=== PATIENT | female | born 1970 | race Caucasian/White ===

== ENCOUNTER 2017-12-27 14:45 | Inpatient (IN) ==
--- NOTE | 2017-12-27 19:03 | Internal Med History&Physical ---
Date of Encounter: 12/27/17 Time of Encounter: 16:15 Internal Medicine - H&P: HPI Admitted From: Intrahospital Transfer Plans for Post Hospital Care: Home History of present illness: Ms. Marrufo is a 47 year old female current smoker, HTN, seizures. Pt states she has been having chest pain off and on for about weeks. Reports chest pain has gotten progressively worse. Pain is sharp and radiates to L arm and patricia. Denies association with SOB or diaphoresis. Report N/V. Denies fever or chills. Pt states CP currently 6/10. She states she did not get nitro at [facility]. Recently saw her PCPC for the chest pain and PCP noted that her BP was elevated and prescribed her BP medication. Denies prior hx of CAD or CA. Father had quadruple bypass. Mother had heart disease but is , and sister also has hx of heart disease. Pt is a transfer from [place]. ED at [facility] reports troponin 0.20. EKG SR. neg chest x ray. Past Med Surg Social Fam HX - Past Medical History Medical history: COPD, hepatitis, hypertension, seizures, other Additional medical history: PULMONARY NODULES Psychiatric history: anxiety, depression, panic disorder, PTSD, prior suicide attempt, previous psychiatric hospitalization - Past Surgical History Surgical History: hysterectomy Additional surgical history: PULMONARY "WASH" - Social History Smoking Status: Current every day smoker Smokeless Tobacco Status: No Alcohol use: occasionally Drug use: none - Family History Father Living Status: Hx Family Cardiac Disorders: Yes (quadruple bypass) Hx Family Respiratory Disorders: No Hx Family Cancer: No Hx Family GI Disorders: No Hx Family Endocrine Disorder: No Hx Family Neuromuscular Disorders: No Hx Family Neurologic Disorders: Yes (CVA) Hx Family HEENT Disorders: No Hx Family Autoimmune Disorders: No Mother Living Status: Hx Family Cardiac Disorders: No Hx Family Respiratory Disorders: No Hx Family Cancer: No Hx Family GI Disorders: No Hx Family Endocrine Disorder: No Hx Family Neuromuscular Disorders: No Hx Family Neurologic Disorders: Yes (CVA) Hx Family HEENT Disorders: No Hx Family Autoimmune Disorders: No - Additional Family History Additional family history: Mother heart disease. sister heart disease. Internal Medicine - H&P: Meds Breo Ellipta 100-25 Mcg INH 1 puff IH DAILY 11/12/16 [History] Duoneb 1 aerosol IH Q4H PRN 11/12/16 [History] Oxygen 2 l IH HS 11/12/16 [History] Proair Hfa 2 puff IH Q4H PRN 11/12/16 [History] Spiriva 1 puff IH DAILY 11/12/16 [History] Valium 5 mg PO TID 11/12/16 [History] levETIRAcetam [Keppra] 500 mg PO TID #30 tablet 03/18/17 [Rx] Lisinopril [Zestril] 10 mg PO DAILY 12/27/17 [History] Tizanidine HCl [Zanaflex] 2 mg PO TID 12/27/17 [History] 3 Allergy/AdvReac Type Severity Reaction Status Date / Time Cyclobenzaprine Allergy Swelling Verified 12/27/17 12:00 [From Flexeril] of Lip/Tongue/Throat All Systems PM: A 10-system review of systems was performed and is negative for pertinent findings except as documented above in the HPI. - Constitutional Vitals: Temp Pulse Resp BP Pulse Ox 97.7 F 64 16 138/91 97 12/27/17 16:30 12/27/17 16:30 12/27/17 16:30 12/27/17 16:30 12/27/17 16:30 General appearance: Present: A&O X 3, no acute distress - Head Head exam: Present: atraumatic, normocephalic - Eye Eye exam: Present: PERRL, conjuntiva pink, sclera anicteric Pupils: Present: PERRL - Neck Neck exam general surgery: Present: supple, trachea midline. Absent: lymphadenopathy - Respiratory Respiratory exam: Present: CTAB. Absent: accessory muscle use, rales, rhonchi, wheezes - Cardiovascular Cardiovascular exam: Present: RRR, +S1, +S2. Absent: diastolic murmur, gallop, rubs, systolic murmur - GI/Abdominal GI/Abdominal exam: Present: normal bowel sounds, soft, no peritoneal signs. Absent: distended, tenderness - Extremities Exam Extremities exam: Present: warm, radial pulses palpable and symmetrical. Absent : calf tenderness, cyanotic, pedal edema - Neurological Exam Neurological exam: Present: CN II-XII intact, oriented X3, no focal deficits. Absent: pronater drift, facial droop, speech deficit - Skin Skin exam: Present: dry, intact - Assessment and plan (1) Chest pain Current Visit: Yes Status: Acute Assessment and plan: Will check Troponin now as pt states chest pain is up to 6/10 again. Will check EKG 12 lead. Will cycle troponin. ASA daily, nitro SL prn. Oxygen prn. Will monitor on telemetry. FLP in am. If troponin bumps will start on heparin gtt. Will give heparin 5000 units bolus x one now Qualifiers: Qualified Code(s): R07.9 - Chest pain, unspecified (2) HTN (hypertension) Current Visit: Yes Status: Acute Assessment and plan: Lisinopril Qualifiers: Qualified Code(s): I10 - Essential (primary) hypertension (3) Seizure Current Visit: Yes Status: Acute Assessment and plan: will resume levetiracetam and place on seizure precaution. (4) Current smoker Current Visit: Yes Status: Acute Assessment and plan: Cessation strongly advised. Nicotine patch prn. - Time Spent With Patient Total time spent is greater than 50% in coordination of care (as documented) at patient's floor/unit and/or counseling patient: 25 - 35 minutes
[2017-12-27] MEDS: Nitroglycerin 0.4 MG TAB.SUBL SL PRN ×3 (19:15→19:35)
[2017-12-27 19:51] LABS: Troponin I 0.22 ng/mL (< 0.04)
[2017-12-27] MEDS ORDERED: Ipratropium/Albuterol Neb 3 ML IH PRN (19:52)
[2017-12-27] MEDS ORDERED: tiZANidine 4 MG TABLET PO PRN (19:53)
[2017-12-27] MEDS: levETIRAcetam 500 MG/5 ML UDC PO SCH (20:18)
[2017-12-27 20:27] LABS: Hematocrit 37.6 % (35.3-44.9); Hemoglobin 13.3 g/dL (11.5-15.4); Mean Corpuscular HGB Conc 35.4 g/dL (31.6-35.5); Mean Corpuscular Hemoglobin 31.7 pg (28.0-33.3); Mean Corpuscular Volume 89.5 fL (83.0-100.0); Mean Platelet Volume 9.9 fL (9.4-12.4); Platelet Count 241 K/mcL (140-400); Red Cell Distribution Width 11.9 % (11.5-14.5)
[2017-12-27] MEDS: Budesonide/Formoterol 80/4.5 MDI IH SCH (21:26)
[2017-12-27] MEDS ORDERED: Melatonin 3 MG TABLET PO PRN (21:45)
[2017-12-27 22:08] LABS: Amphetamine Screen,Urine Negative ng/mL (Cutoff=1000); Barbiturate Screen,Urine Negative ng/mL (Cutoff=200); Benzodiazepines Screen,Urine Positive ng/mL (Cutoff=200); Cannabinoid Screen,Urine Negative ng/mL (Cutoff = 50); Cocaine Screen,Urine Negative ng/mL (Cutoff= 300); Opiate Screen,Urine Negative ng/mL (Cutoff=300); Phencyclidine Screen,Urine Negative ng/mL (Cutoff=25)
[2017-12-28 01:19] LABS: Basophils % 0.6 %; Eosinophils # 0.1 K/mcL (0.0-0.6); Eosinophils % 1.6 %; Hematocrit 36.1 % (35.3-44.9); Hemoglobin 12.6 g/dL (11.5-15.4); Immature Granulocytes % 0.2 % (0-4); Lymphocytes # 2.2 K/mcL (0.6-4.6); Lymphocytes % 45.6 %; Mean Corpuscular HGB Conc 34.9 g/dL (31.6-35.5); Mean Corpuscular Hemoglobin 31.2 pg (28.0-33.3); Mean Corpuscular Volume 89.4 fL (83.0-100.0); Mean Platelet Volume 9.7 fL (9.4-12.4); Monocytes # 0.4 K/mcL (0.0-1.3); Monocytes % 8.5 %; Neutrophils # 2.1 K/mcL (1.6-8.9); Platelet Count 214 K/mcL (140-400); Red Blood Count 4.04 M/mcL (3.82-4.97); Red Cell Distribution Width 11.9 % (11.5-14.5); Segmented Neutrophils % 43.5 %
[2017-12-28 01:22] LABS: Prothrombin Time 10.6 Seconds (9.4-12.1)
[2017-12-28 01:37] LABS: Alanine Aminotransferase 42 Units/L (7-52); Albumin 3.8 g/dL (3.5-5.7); Albumin/Globulin Ratio 1.7 (1.1-2.2); Alkaline Phosphatase 107 Units/L (34-104); Aspartate Amino Transferase 38 Units/L (13-39); BUN/Creatinine Ratio 19 (6-26); Bilirubin,Total 0.8 mg/dL (0.3-1.0); Blood Urea Nitrogen 14 mg/dL (6-20); Carbon Dioxide 25 mEq/L (23-29); Chloride 109 mEq/L (98-107); Chol/HDL Ratio 2.5 (0-4.9); Cholesterol 170 mg/dL (< 200); Globulin 2.3 g/dL (2.4-3.5); Glucose 97 mg/dL (70-105); HDL Cholesterol 69 mg/dL (40-59); LDL Cholesterol,Calculated 88 mg/dL (0-99); Magnesium 1.9 mg/dL (1.6-2.6); Osmolality,Calculated 292 (280-300); Potassium 3.9 mEq/L (3.5-5.1); Sodium 141 mEq/L (136-145); Total Protein 6.1 g/dL (6.4-8.9); Triglycerides 66 mg/dL (< 150); eGFR For African Americans > 60 (> 60); eGFR For Non-African Americans > 60 (> 60)
[2017-12-28] MEDS ORDERED: *HR* Heparin 5,000 UNIT/ML VIAL IVP PRN ×2 (01:47)
[2017-12-28] MEDS ORDERED: Heparin 25,000 UNIT/500 ML D5W 25,000 UNIT/500 ML BAG IVC SCH (02:00)
[2017-12-28 02:09] LABS: Activated Partial Thrombo Time 27.9 Seconds (26.0-36.0)
[2017-12-28 04:43] LABS: BUN/Creatinine Ratio 20 (6-26); Blood Urea Nitrogen 14 mg/dL (6-20); Carbon Dioxide 21 mEq/L (23-29); Chloride 110 mEq/L (98-107); Glucose 103 mg/dL (70-105); Osmolality,Calculated 293 (280-300); Potassium 4.2 mEq/L (3.5-5.1); Sodium 141 mEq/L (136-145); eGFR For African Americans > 60 (> 60); eGFR For Non-African Americans > 60 (> 60)
[2017-12-28 04:50] LABS: Thyroid Stimulating Hormone 1.436 mcIU/mL (0.340-5.600)
[2017-12-28] MEDS ORDERED: *HR* Heparin 5,000 UNIT/ML VIAL SQ SCH (06:00)
[2017-12-28] MEDS: Budesonide/Formoterol 80/4.5 MDI IH SCH ×2 (07:37→20:53)
--- NOTE | 2017-12-28 08:26 | Cardiology Consult Note ---
Date of Encounter: 12/28/17 Time of Encounter: 08:25 Assessment and Plan (1) NSTEMI (non-ST elevated myocardial infarction) Current Visit: Yes Status: Acute Per Cardiology: Suspected non-STEMI with peak troponin of 0.25. ECG showed sinus rhythm in the 70s. On heparin drip, aspirin, JUANY inhibitor. We will add statin, LFT stable. Consider addition of beta anni if heart rate blood pressure tolerates. Echo pending. Patient and family agreeable to possible LHC. Tox screen negative. Dr. Bledsoe aware. Will discuss with Dr. Montero. LHC today. (2) Current smoker Current Visit: Yes Status: Chronic Per Cardiology: History of nicotine abuse and smokes one pack per day for 31 years. Requesting nicotine patch. Discussion w patient/family: The assessment and plan as outlined above was discussed with the patient and/or family members who expressed understanding and agreement. All questions were answered. Thank you for involving us in the care of your patient. Please call with any questions. History of Present Illness Consult date: 12/28/17 Requesting physician: Annalise Lomeli Consult reason: NSTEMI/CP Chief complaint: CP History of present illness: Ms. Marrufo is a 47 year old female with a relevant past medical history of COPD , nicotine abuse, hypertension, hepatitis, anxiety, depression, PTSD, history of suicide attempt, history of methamphetamine use. Cardiology consult for non-STEMI and chest pain symptoms. Patient reports midsternal chest stabbing sensations over the past 3-4 weeks progressively worsening and now occurring on a daily basis mainly at rest. She reports some radiation to her left shoulder. She reported some left jaw "altered sensation". She does report symptoms of dizziness and nausea with vomiting and shortness of breath with these episodes. Currently chest pain- free. Reports history of father with quadruple bypass in his 50s. She is smoked one pack per day for the past 31 years. She reports she had left heart catheterization in her 20s that did not show any lesions. She does report increased dyspnea on exertion over the past few weeks with increased frequency of breathing treatments at home. Also reports increasing fatigue over the past few weeks. Reports recent right leg surgery for fracture. She denies any current polysubstance abuse. Of note, patient reported recent disappointment with cavity filling. She denies any active bleeding or blood loss. Past Med Surg Social Fam HX - Past Medical History Attestation: Yes The following information was validated with the patient. Source: patient, old records reviewed, obtained from family Medical history: COPD, hepatitis, hypertension, seizures, other Additional medical history: PULMONARY NODULES Psychiatric history: anxiety, depression, panic disorder, PTSD, prior suicide attempt, previous psychiatric hospitalization - Past Surgical History Surgical History: hysterectomy Additional surgical history: PULMONARY "WASH" - Social History Smoking Status: Current every day smoker Smokeless Tobacco Status: No Alcohol use: occasionally Drug use: none - Family History Father Living Status: Hx Family Cardiac Disorders: Yes (quadruple bypass) Hx Family Respiratory Disorders: No Hx Family Cancer: No Hx Family GI Disorders: No Hx Family Endocrine Disorder: No Hx Family Neuromuscular Disorders: No Hx Family Neurologic Disorders: Yes (CVA) Hx Family HEENT Disorders: No Hx Family Autoimmune Disorders: No Mother Living Status: Hx Family Cardiac Disorders: No Hx Family Respiratory Disorders: No Hx Family Cancer: No Hx Family GI Disorders: No Hx Family Endocrine Disorder: No Hx Family Neuromuscular Disorders: No Hx Family Neurologic Disorders: Yes (CVA) Hx Family HEENT Disorders: No Hx Family Autoimmune Disorders: No Medications and Allergies Albuterol Sulfate [Proair Hfa] 2 puff IH Q4-6H PRN 12/28/17 [History] Fluticasone/Vilanterol [Breo Ellipta 100-25 Mcg INH] 1 puff IH QPM 12/28/17 [ History] LevETIRAcetam [Keppra] 1,000 mg PO QAM 12/28/17 [History] LevETIRAcetam [Keppra] 1,500 mg PO HS 12/28/17 [History] Lisinopril [Zestril] 10 mg PO DAILY 12/28/17 [History] Ondansetron HCl [Zofran] 4 mg PO Q8HR PRN 12/28/17 [History] Tiotropium [Spiriva] 18 mcg IH QAM 12/28/17 [History] Tizanidine HCl 4 mg PO TID 12/28/17 [History] diazePAM [Valium] 5 mg PO TID 12/28/17 [History] rOPINIRole [Requip] 0.25 mg PO HS 12/28/17 [History] 3 Allergy/AdvReac Type Severity Reaction Status Date / Time Cyclobenzaprine Allergy Swelling Verified 12/27/17 12:00 [From Flexeril] of Lip/Tongue/Throat All Systems Review: The remainder of the systems were reviewed and are negative - Constitutional Constitutional: fatigue - Cardiovascular Cardiovascular: as per HPI, chest pain at rest, dyspnea on exertion, radiating jaw, neck or arm pain, lightheadedness - Respiratory Respiratory: dyspnea Physical Examination Vital Signs, Last 4 Hours Temp Pulse Resp BP Pulse Ox 12/28/17 08:07 98.2 F 58 16 118/82 96 12/28/17 07:37 15 97 General: Conversant, No Apparent Distress HEENT: Atraumatic, Normocephaly, Mucus Membranes Moist Neck: No JVD, Normal carotid pulses Cardiac: Reg Rate and Rhythm, Normal S1 and S2, No Murmur Lungs: Normal Breath Sounds, No Wheeze, Rales, Rhonchi Neuro: Alert and responsive, No focal deficits noted Abdomen: Soft, Non-Tender Skin: No rashes noted on visualized skin Musculoskeletal: No Chest Wall Tenderness Extremities: No Clubbing, No Cyanosis, No Edema, Normal Pulses Results 12/28/17 00:52 12/28/17 00:52 Lab Results Laboratory Tests 12/27/17 12/27/17 12/27/17 12:35 18:55 19:07 INR D-Dimer Creatinine Est GFR (Non-Af Amer) Magnesium AST ALT Troponin I 0.20 H* 0.22 H* TSH 1.436 U Benzodiazepines Scrn Positive H 12/27/17 12/28/17 12/28/17 19:07 00:52 00:52 INR 1.0 D-Dimer < 215 Creatinine Est GFR (Non-Af Amer) Magnesium AST ALT Troponin I 0.23 H* TSH U Benzodiazepines Scrn 12/28/17 12/28/17 00:52 07:11 INR D-Dimer Creatinine 0.75 Est GFR (Non-Af Amer) > 60 Magnesium 1.9 AST 38 ALT 42 Troponin I 0.25 H* TSH U Benzodiazepines Scrn Active Medications Albuterol/Ipratropium (Duoneb) 3 ml IH [id number] PRN PRN Reason: Shortness Of Breath/Wheezing Stop: 06/28/18 19:53 Aspirin (Aspirin) 81 mg PO DAILY GINA Stop: 06/29/18 09:01 Budesonide/Formoterol Fumarate (Symbicort) 2 puff IH BIDR GINA PRN Reason: Protocol Stop: 06/28/18 22:01 Last Admin: 12/28/17 07:37 Dose: 2 puff Heparin Sodium (Porcine) (Heparin) 4,000 unit IVP Q6HR PRN PRN Reason: SEE COMMENTS Stop: 06/29/18 01:48 Heparin Sodium (Porcine) (Heparin) 2,000 unit IVP Q6H PRN PRN Reason: SEE COMMENTS Stop: 06/29/18 01:48 Heparin Sodium/Dextrose (Heparin 25,000 Unit/500 Ml D5w) 25,000 unit in 500 mls @ 19.56 mls/hr IVC .Q24H GINA; 12 UNIT/KG/HR PRN Reason: Protocol Stop: 06/29/18 02:01 Last Admin: 12/28/17 02:53 Dose: 12 unit/kg/hr, 19.56 mls/hr Levetiracetam (Keppra Oral Soln) 500 mg PO TID GINA Stop: 06/28/18 21:01 Last Admin: 12/27/17 20:18 Dose: 500 mg Lisinopril (Zestril) 10 mg PO DAILY GINA PRN Reason: Protocol Stop: 06/29/18 09:01 Melatonin (Melatonin) 3 mg PO HS PRN PRN Reason: Insomnia Stop: 06/28/18 21:46 Last Admin: 12/27/17 22:23 Dose: 3 mg Nicotine (Nicoderm) 14 mg TD DAILY GINA PRN Reason: Protocol Stop: 06/29/18 09:01 Nitroglycerin (Nitroglycerin) 0.4 mg SL Q5MIN PRN PRN Reason: Chest Pain Stop: 06/28/18 18:53 Last Admin: 12/27/17 19:35 Dose: 0.4 mg Tizanidine HCl (Zanaflex) 2 mg PO TID PRN PRN Reason: Muscle Spasm Stop: 06/28/18 19:54 - Imaging and Cardiology Echo: pending - EKG Interpretation EKG results cardiology: personally reviewed, normal ECG, sinus rhythm, no diagnostic ischemia Consult Discharge Plan - Plan Referrals: Mima Flores, [employer] [Primary Care Provider] -
[2017-12-28] MEDS ORDERED: levETIRAcetam 500 MG/5 ML UDC PO SCH (09:00)
[2017-12-28] MEDS: Aspirin 81 MG TAB.CHEW PO SCH (09:10)
[2017-12-28] MEDS: levETIRAcetam 500 MG/5 ML UDC PO SCH ×3 (09:10→21:04)
[2017-12-28] MEDS: Nicotine 14 MG PATCH.TD24 TD SCH (09:10)
[2017-12-28] MEDS ORDERED: Nitroglycerin 1,000 MCG/10 ML VIAL IV ONE (09:20)
[2017-12-28] MEDS ORDERED: ISOVUE-370 200 ML INFUS..BTL IV ONE (09:20)
[2017-12-28] MEDS ORDERED: *HR* Heparin 10,000 UNIT/10 ML VIAL ONE (09:20)
[2017-12-28] MEDS ORDERED: Heparin 1,000 UNITS/500 mL 500 ML ONE (09:20)
[2017-12-28] MEDS ORDERED: 0.9 % Sodium Chloride 1,000 ML ONE ×2 (09:20→09:30)
[2017-12-28] MEDS ORDERED: *HR* Midazolam HCl 2 MG/2 ML VIAL ONE ×2 (10:30→10:39)
--- NOTE | 2017-12-28 10:32 | Pre-Sedation Evaluation ---
Pre-sedation evaluation - Pre-sedation checklist Date of procedure: 12/28/17 Procedure: cath Recent Vitals: Last Vital Signs Temp 98.2 F 12/28/17 08:07 Pulse 58 12/28/17 08:07 Resp 16 12/28/17 08:07 BP 118/82 12/28/17 08:07 Pulse Ox 96 12/28/17 08:07 H&P (including ROS) documented in medical record: Yes Previous reaction to sedatives/anesthetics: No Dietary Status: No solid food in preceding 4 hrs and no liquid in preceding 2 hrs Airway Assessment: Patient can open mouth completely, TMJ function normal Dentition: No loose teeth or bridges, full dentition Possible difficult airway: No ASA Classification *see protocol: CLASS III-Severe systemic disease Plan of Care: Pt appropriate candidate for procedure/moderate/conscious sedation , Risks/benefits of procedure/sedation discussed w/ patient/family, If not NPO; Risk of intake outweiged by necessity to perform procedure
--- NOTE | 2017-12-28 11:34 | Invasive Diagnostic Lab Proc ---
Name: Vita Marrufo Date of Study: 12/28/2017 Date: 1970 Ht: 66.1in Medical Record#: [id number] Age: 47 Wt: 179.68lb Gender: Female BSA: 1.91 Order #: [id number] BMI: 28.88 Physicians Procedure Physician: Nishant Bledsoe DO Referring MD: Referring MD: Staff Name [facility] Monitor 09:48 AM Jane Washington RT (R) Scrub 09:48 AM Sonia Rodney RN Lab Pack Chemist 09:48 AM Steffanie Link RN Lab Pack Chemist 09:48 AM Keenan Morelos RN Nurse 09:48 AM Indications Indication Non-Stemi Procedures Performed Procedure L HRT ARTERY/VENTRICLE ANGIO Pre-Procedure Checklist Informed consent is complete signed and on chart. H&P is on chart. ID band is on and ID verified with patient. Patient NPO for procedure The procedure was described for the patient and questions were answered. ECG is on chart. Plan of Care Patient will tolerate the procedure without complications. Adequate level of comfort will be maintained. Hemodynamics will remain stable Patient will recover from procedure without complications. Respiratory function will be maintained. Cardiac rhythm will remain stable. Patient temperature will be maintained. Patient and/or family have verbalized understanding of the procedure. Patient Education Chief Complaint/Reason for Test: Cardiac Cath Developmental Category: Adult (18-64 years) Developmentally Appropriate for Age: Yes Learning Barriers: None Education Needs: Procedure Education Method: Verbal Information Taught: Cardiac Cath Educational Evaluation: Able to repeat information Intravenous Access Time IV Size Location DC'd Fluid/Drip Rate Units RN 20g 1 07/27" Patent On Arrival Lt Antecubital Allergies Cyclobenzaprine Vital Signs Time BP (mmHg) HR (bpm) O2 Sat. RR (bpm) LOC 10:40 AM / % 5 = Fully awake and oriented or at pre-proc level 10:40 AM / % 4 = Oriented but drowsy 10:28 AM 140 / 95 51 99 % 10:33 AM 127 / 83 54 100 % 10:38 AM 122 / 80 53 100 % 10:43 AM 128 / 85 57 100 % 10:48 AM 128 / 77 66 100 % 10:53 AM 134 / 91 56 100 % 10:58 AM 128 / 83 59 100 % 11:03 AM 124 / 90 63 100 % 10:55 AM / % 4 = Oriented but drowsy 11:10 AM / % 4 = Oriented but drowsy Procedural Medications Time Medication Dose Units Method Given By 10:28 AM Oxygen 2 L/min nasal cannula Sonia Rodney RN 10:31 AM Versed 2 mg Intravenous Sonia Rodney RN 10:40 AM Versed 1 mg Intravenous Sonia Rodney RN 10:43 AM Lidocaine 2% 20 ml Subcutaneous Nishant Bledsoe DO 11:02 AM Versed 1 mg Intravenous Sonia Rodney RN ASA Classification: CLASS III- Severe systemic disease (i.e. prior AMI, diabetes with vascular complications, morbid obesity) Lan Score Preprocedure Postprocedure Activity 2- Moves 4 extremities sustained head lift Activity 2- Moves 4 extremities sustained head lift Circulation 2- SBP +/= 20 points of pre-anesthetic level Circulation 2- SBP +/= 20 points of pre-anesthetic level Consciousness 2- Awake and alert oriented x 3 Consciousness 2- Awake and alert oriented x 3 O2 Saturation 2- Able to maintain O2 satruation of 92% on room air O2 Saturation 2- Able to maintain O2 satruation of 92% on room air Respiratory 2- Able to deep breathe and cough well Respiratory 2- Able to deep breathe and cough well Total Score 10 Total Score 10 Contrast Agent: Isovue Diagnostic Contrast: 80 ml Total Contrast: 80 ml Fluoro Dose: 257 mGy Activated Clotting Time Time Seconds to Clot 11:07 AM 117 Procedure Log Time Note Enter By 09:48 AM Pt arrived to lab pack chemist 2 at 09:48 [facility] 09:48 AM Marycarmen Marcus RN Position: Monitor Time in: :48 09:48 AM Jane Washington RT (R) Position: Scrub Time in: 09:48 mm 09:48 AM Sonia Rodney RN Position: Lab Pack Chemist Time in: 09:48 09:48 AM Steffanie Link RN Position: Lab Pack Chemist Time in: 09:48 mm 09:48 AM Keenan Morelos RN Position: Nurse Time in: 09:48 09:48 AM Patient charges- Angio tray pack, Navilyst 3mm J, Pulse Oximetry and ACIST tubing and transducer 09:48 AM Case Delayed No mm 09:49 AM Physican paged/called 09:49. [email or web address] 09:53 AM Physican responded and notified patient is ready 09:53 tsoummers 10:17 AM Physician paged again tsoummers 10:20 AM Physician arrived 10:20 tsoummers 10:26 AM Meet and greet completed tsoummers 10:26 AM Sign in performed according to hospital policy. tsoummers 10:26 AM Procedure start 10:26 tsoummers 10: AM CathStat 10:27 AM Vitals capture started with the following parameters, Patient=Adult, Interval=5 min, Initial Kogixwcz=685 mmHg, Deflation Rate=5 mmHg, Cuff placed on Right Arm 10:28 AM Recorded ECG: HR=57 Condition=Condition 1 10:28 AM HR=51 bpm, OFVQ=205/95 mmhg, SpO2=99.0 %, Comment=SB 10: AM Time: 10:28 Oxygen on at 2 L/min per nasal cannula by Sonia Rodney RN 10: AM Time: 10:31 Versed 2 mg Intravenous Given by Sonia Rodney RN 10:33 AM HR=54 bpm, JOIT=309/83 mmhg, JtL8=004.0 %, Comment=SB 10:34 AM Recorded ECG: HR=63 Condition=Condition 1 10:38 AM ASA Class CLASS III- Severe systemic disease (i.e. prior AMI, diabetes with vascular complications, morbid obesity) tsoummers 10:38 AM HR=53 bpm, NHHB=936/80 mmhg, AgW2=616.0 %, Comment=SB 10:40 AM Time: 10:40 Patient comfortable and pain free: Yes [facility] 10[facility] AM Time: 10:40LOC: 5 = Fully awake and oriented or at pre-proc level [facility] 10:40 AM Clinical Presentation: Non-STEMI tsoummers 10:40 AM Time out performed according to hospital policy tsmmers 10:40 AM Time: 10:40 Versed 1 mg Intravenous Given by Sonia Rodney RN nirmala 10:41 AM Pressure channel 2 zeroed. 10:43 AM HR=57 bpm, SXPY=450/85 mmhg, VrX7=386.0 %, Comment=SB 10:44 AM Time: 10:43 20 ml Lidocaine 2% to right groin Subcutaneous Given by Nishant Bledsoe DO [facility] 10:45 AM Micro-Introducer Kit utilized for sheath placement tsoummers 10:46 AM 0.035 145cm Navilyst 3mmJ wire [id number] oummers 10:46 AM Access obtained by percutaneous puncture. 6Fr 10cm Terumo [place] sheath placed in right Femoral artery. [id number] oummers 10:46 AM 6Fr FR 4 catheter inserted over the wire [facility] mm 10:47 AM Catheter selectively placed in left ventricle tsoummers 10:47 AM wire removed tsmmers 10:47 AM Recorded Pressure: LV, HR=54, Condition=Condition 1 (Left Ventricle) LV 131/3/11 10:47 AM Recorded Pressure: LV, Ao, HR=55, Condition=Condition 1 (Left Ventricle) LV 119/1/10, (Aorta) Ao 139/78/110 10:48 AM Recorded Pressure: Ao, HR=59, Condition=Condition 1 (Aorta) Ao 119/65/88 10:48 AM [facility] 10:48 AM RCA angiography performed in multiple views. tsoummers 10:48 AM Catheter removed tsmmers 10:48 AM HR=66 bpm, CWPG=115/77 mmhg, JvD1=948.0 %, Comment=nsr 10:49 AM 6Fr FL 4 catheter inserted over the wire [facility] 10:49 AM LCA angiography performed in multiple views. tsoummers 10:49 AM Coronary Dominance: right tsmmers 10:50 AM Recorded Pressure: Ao, HR=61, Condition=Condition 1 (Aorta) Ao 119/63/82 10:50 AM [facility] 10:53 AM 6Fr LCB catheter inserted over the wire [id number] tsoummers 10:53 AM HR=56 bpm, SKQY=133/91 mmhg, RkU1=712.0 %, Comment=SB 10:54 AM Catheter removed tsmmers 10:54 AM 5Fr FL5 catheter inserted over the wire [id number] mmers 10:55 AM Time: 10:40 Patient comfortable and pain free: Yes tsoummers 10:55 AM Time: 10:40LOC: 4 = Oriented but drowsy tsoummers 10:56 AM Catheter removed tsmmers 10:56 AM 5Fr FL3.5 catheter inserted over the wire [id number] 10:57 AM LCA angiography performed in multiple views. 10:57 AM Recorded Pressure: Ao, HR=59, Condition=Condition 1 (Aorta) Ao 129/79/101 10:58 AM HR=59 bpm, GODR=446/83 mmhg, QvE5=684.0 % 11:00 AM Catheter removed 11:01 AM 6Fr JL 3.5 Runway guide catheter was used to cannulate the PCI vessel successfully. reused? No [facility] 11:01 AM difficulty engaging catheter to view LAD 11:02 AM Guide catheter removed intact. [facility] 11:02 AM Bolus angiogram of right Femoral complete: hand injection [facility] 11:02 AM Time: 11: Versed 1 mg Intravenous Given by Sonia Rodney RN [facility] 11:03 AM HR=63 bpm, MJFE=157/90 mmhg, DoV9=620.0 % 11:03 AM Procedure completed at 11:03 [facility] 11:04 AM Did you address SHANELL flow and Dominance? Yes [facility] 11:06 AM Sign out completed: Radiation Dose 257.45 mGy Fluoro Time: 4.8 Isovue 370 - 200ml contrast 80 ml given by Nishant Bledsoe DO. Complications: NoneCardiac Rehab Consult needed: NoConfirmed administered medications: Yes [facility] 11:06 AM Isovue 370 - 200ml,1 Bottle(s) used. [facility] 11:07 AM Estimated Blood Loss: minimal [facility] 11:07 AM Post ECG NSR [facility] 11:08 AM At 11:07 the ACT was 117 seconds. [facility] 11:08 AM Fluoro Time: 4.8 [facility] 11:08 AM Isovue 370 - 200ml contrast [address] Bledsoe. [facility] 11:08 AM Radiation Dose 257.45 mGy [facility] 11:09 AM Plavix, Effient or Brilinta given No [facility] 11:09 AM Information taught Cardiac Cath [facility] 11:10 AM Education needs Procedure, Plan of Care, and Responsibilities of Patient in Care [facility] 11:10 AM Learning barriers :None celi 11:10 AM Education Methods Verbal celi 11:10 AM Education evaluation Able to repeat information celi 11:10 AM Time: 10:55 Patient comfortable and pain free: Yes celi 11:10 AM Time: 10:55LOC: 4 = Oriented but drowsy celi 11:10 AM Report given to Stanford PALMA Pt taken to 3A Room #52. 11:10 celi 11:11 AM Arterial sheath pulled using manual compression and V+ Pad for 15 minutes by Sonia Rodney RN 11:26 AM Time: 11:10LOC: 4 = Oriented but drowsy celi 11:26 AM Time: 11:10 Patient comfortable and pain free: Yes celi 11:26 AM Site status No bleeding/hematoma - Rt Groin as reported by Sonia Rodney RN at 11:26 celi 11:26 AM Opsite applied celi 11:26 AM Patient out of room: 11:26 celi Complications Complication None Hemodynamics Pressures Site Systolic/A Wave Diastolic/V Wave Mean LV 131 3 11 LV 119 1 10 AO 139 78 110 AO 119 65 88 AO 119 63 82 AO 129 79 101 Post Procedure Information Rhythm: NSR Post procedural instructions were given Site Checks Time Location Status Staff Sheath In? Note 11:26 AM Rt Groin No bleeding/hematoma Sonia Rodney RN Pulses Time Site Pre-Procedure Post-Procedure Note Bilateral DP & PT 2+ Bilateral radial 2+ Updated by Marycarmen Marcus RN on 12/28/2017 11:27:12 AM electronically signed on 12/28/2017 11:27:43 AM with status of Final
--- NOTE | 2017-12-28 11:44 | Invasive Diagnostic Lab Proc ---
Name: Vita Marrufo Date of Study: 12/28/2017 Date: 1970 Ht: 66.1in Medical Record#: [id number] Age: 47 Wt: 179.68lb Gender: Female BSA: 1.91 Order #: [id number] BMI: 28.88 Physicians Procedure Physician: Nishant Bledsoe DO Referring MD: Referring MD: Staff Name [facility] RN Monitor 09:48 AM Jane Washingotn RT (R) Scrub 09:48 AM Sonia Rodney RN Dairy Technician 09:48 AM Steffanie Link RN Dairy Technician 09:48 AM Keenan Morelos RN Nurse 09:48 AM Indications Indication Non-Stemi Procedures Performed Procedure L HRT ARTERY/VENTRICLE ANGIO Pre-Procedure Checklist Informed consent is complete signed and on chart. H&P is on chart. ID band is on and ID verified with patient. Patient NPO for procedure The procedure was described for the patient and questions were answered. ECG is on chart. Plan of Care Patient will tolerate the procedure without complications. Adequate level of comfort will be maintained. Hemodynamics will remain stable Patient will recover from procedure without complications. Respiratory function will be maintained. Cardiac rhythm will remain stable. Patient temperature will be maintained. Patient and/or family have verbalized understanding of the procedure. Patient Education Chief Complaint/Reason for Test: Cardiac Cath Developmental Category: Adult (18-64 years) Developmentally Appropriate for Age: Yes Learning Barriers: None Education Needs: Procedure Education Method: Verbal Information Taught: Cardiac Cath Educational Evaluation: Able to repeat information Intravenous Access Time IV Size Location DC'd Fluid/Drip Rate Units RN 20g 1 07/27" Patent On Arrival Lt Antecubital Allergies Cyclobenzaprine Vital Signs Time BP (mmHg) HR (bpm) O2 Sat. RR (bpm) LOC 10:40 AM / % 5 = Fully awake and oriented or at pre-proc level 10:40 AM / % 4 = Oriented but drowsy 10:55 AM / % 4 = Oriented but drowsy 11:10 AM / % 4 = Oriented but drowsy 10:28 AM 140 / 95 51 99 % 10:33 AM 127 / 83 54 100 % 10:38 AM 122 / 80 53 100 % 10:43 AM 128 / 85 57 100 % 10:48 AM 128 / 77 66 100 % 10:53 AM 134 / 91 56 100 % 10:58 AM 128 / 83 59 100 % 11:03 AM 124 / 90 63 100 % 11:08 AM 121 / 81 61 99 % 11:13 AM 123 / 86 49 100 % 11:18 AM 118 / 84 51 100 % 11:23 AM 115 / 78 48 100 % Procedural Medications Time Medication Dose Units Method Given By 10:28 AM Oxygen 2 L/min nasal cannula Sonia Rodney RN 10:31 AM Versed 2 mg Intravenous Sonia Rodney RN 10:40 AM Versed 1 mg Intravenous Sonia Rodney RN 10:43 AM Lidocaine 2% 20 ml Subcutaneous Nishant Bledsoe, DO 11:02 AM Versed 1 mg Intravenous Sonia Rodney RN ASA Classification: CLASS III- Severe systemic disease (i.e. prior AMI, diabetes with vascular complications, morbid obesity) Lan Score Preprocedure Postprocedure Activity 2- Moves 4 extremities sustained head lift Activity 2- Moves 4 extremities sustained head lift Circulation 2- SBP +/= 20 points of pre-anesthetic level Circulation 2- SBP +/= 20 points of pre-anesthetic level Consciousness 2- Awake and alert oriented x 3 Consciousness 2- Awake and alert oriented x 3 O2 Saturation 2- Able to maintain O2 satruation of 92% on room air O2 Saturation 2- Able to maintain O2 satruation of 92% on room air Respiratory 2- Able to deep breathe and cough well Respiratory 2- Able to deep breathe and cough well Total Score 10 Total Score 10 Contrast Agent: Isovue Diagnostic Contrast: 80 ml Total Contrast: 80 ml Fluoro Dose: 257 mGy Activated Clotting Time Time Seconds to Clot 11:07 AM 117 Procedure Log Time Note Enter By 09:48 AM Pt arrived to rd lab technician 2 at 09:48 09:48 AM Marycarmen Marcus RN Position: Monitor Time in: 09:48 09:48 AM Jane Washington RT (R) Position: Scrub Time in: 09:48 09:48 AM Sonia Rodney RN Position: Dairy Technician Time in: 09:48 09:48 AM Steffanie Link RN Position: Dairy Technician [facility]: 09:48 [facility] Keenan Morelos RN Position: Nurse Time in: 09:48 [facility] 09:48 AM Patient charges- Angio tray pack, Navilyst 3mm J, Pulse Oximetry and ACIST tubing and transducer tsoummers 09:48 AM Case Delayed No tsoummers 09:49 AM Physican paged/called 09:49. tsoummers 09:53 AM Physican responded and notified patient is ready 09:53 tsoummers 10:17 AM Physician paged again tsoummers 10:20 AM Physician arrived 10:20 tsoummers 10:26 AM Meet and greet completed tsmmers 10:26 AM Sign in performed according to hospital policy. tsoummers 10:26 AM Procedure start 10:26 tsoummers 10: AM CathStat 10:27 AM Vitals capture started with the following parameters, Patient=Adult, Interval=5 min, Initial Roekgalu=986 mmHg, Deflation Rate=5 mmHg, Cuff placed on Right Arm 10:28 AM Recorded ECG: HR=57 Condition=Condition 1 10:28 AM HR=51 bpm, OSNK=305/95 mmhg, SpO2=99.0 %, Comment=SB 10:28 AM Time: 10:28 Oxygen on at 2 L/min per nasal cannula by Sonia Rodney RN kyrieamado 10:31 AM Time: 10:31 Versed 2 mg Intravenous Given by Sonia Rodney RN 10:33 AM HR=54 bpm, TNRB=480/83 mmhg, LcO2=181.0 %, Comment=SB 10:34 AM Recorded ECG: HR=63 Condition=Condition 1 10:38 AM ASA Class CLASS III- Severe systemic disease (i.e. prior AMI, diabetes with vascular complications, morbid obesity) [facility] 10:38 AM HR=53 bpm, SCBJ=089/80 mmhg, OcU0=735.0 %, Comment=SB 10:40 AM Time: 10:40 Patient comfortable and pain free: Yes tsoummers 10:40 AM Time: 10:40LOC: 5 = Fully awake and oriented or at pre-proc level tsoummers 10:40 AM Clinical Presentation: Non-STEMI tsoummers 10:40 AM Time out performed according to hospital policy [facility] 10:40 AM Time: 10:40 Versed 1 mg Intravenous Given by Sonia Rodney RN nirmala 10:41 AM Pressure channel 2 zeroed. 10:43 AM HR=57 bpm, MIGM=876/85 mmhg, LfH6=504.0 %, Comment=SB 10:44 AM Time: 10:43 20 ml Lidocaine 2% to right groin Subcutaneous Given by Nishant Bledsoe DO [facility] 10:45 AM Micro-Introducer Kit utilized for sheath placement oumm 10:46 AM 0.035 145cm Navilyst 3mmJ wire [id number] mmers 10:46 AM Access obtained by percutaneous puncture. 6Fr 10cm Terumo [place] sheath placed in right Femoral artery. [id number] oumm 10:46 AM 6Fr FR 4 catheter inserted over the wire [facility] mm 10:47 AM Catheter selectively placed in left ventricle tsoumm 10:47 AM wire removed mm 10:47 AM Recorded Pressure: LV, HR=54, Condition=Condition 1 (Left Ventricle) LV 131/3/11 10:47 AM Recorded Pressure: LV, Ao, HR=55, Condition=Condition 1 (Left Ventricle) LV 119/1/10, (Aorta) Ao 139/78/110 10:48 AM Recorded Pressure: Ao, HR=59, Condition=Condition 1 (Aorta) Ao 119/65/88 10:48 AM hand injection tsmmers 10:48 AM RCA angiography performed in multiple views. tsoummers 10:48 AM Catheter removed mm 10:48 AM HR=66 bpm, FEDK=345/77 mmhg, CwQ3=769.0 %, Comment=nsr 10:49 AM 6Fr FL 4 catheter inserted over the wire [facility] mm 10:49 AM LCA angiography performed in multiple views. tsoummers 10:49 AM Coronary Dominance: right tsoumm 10:50 AM Recorded Pressure: Ao, HR=61, Condition=Condition 1 (Aorta) Ao 119/63/82 10:50 AM Catheter removed [facility] 10:53 AM 6Fr LCB catheter inserted over the wire [id number] mmers 10:53 AM HR=56 bpm, ORNP=713/91 mmhg, HnK4=718.0 %, Comment=SB 10:54 AM Catheter removed [facility] 10:54 AM 5Fr FL5 catheter inserted over the wire [id number] [facility] 10:[facility] AM Time: 10:40 Patient comfortable and pain free: Yes [facility] 10:55 AM Time: 10:40LOC: 4 = Oriented but drowsy [facility] 10:56 AM Catheter removed [facility] 10:56 AM 5Fr FL3.5 catheter inserted over the wire [id number] 10:57 AM LCA angiography performed in multiple views. [facility] 10:57 AM Recorded Pressure: Ao, HR=59, Condition=Condition 1 (Aorta) Ao 129/79/101 10:58 AM HR=59 bpm, IUZC=389/83 mmhg, XcM3=008.0 % 11:00 AM Catheter removed 11:01 AM 6Fr JL 3.5 Runway guide catheter was used to cannulate the PCI vessel successfully. reused? No [facility] 11:01 AM difficulty engaging catheter to view LAD 11:02 AM Guide catheter removed intact. [facility] 11:02 AM Bolus angiogram of right Femoral complete: hand injection [facility] 11:02 AM Time: 11:02 Versed 1 mg Intravenous Given by Sonia Rodney RN [facility] 11:03 AM HR=63 bpm, ARGE=607/90 mmhg, OvP8=686.0 % 11:03 AM Procedure completed at 11:03 [facility] 11:04 AM Did you address SHANELL flow and Dominance? Yes [facility] 11:06 AM Sign out completed: Radiation Dose 257.45 mGy Fluoro Time: 4.8 Isovue 370 - 200ml contrast 80 ml given by Nishant Bledsoe DO. Complications: NoneCardiac Rehab Consult needed: NoConfirmed administered medications: Yes [facility] 11:06 AM Isovue 370 - 200ml,1 Bottle(s) used. [facility] 11:07 AM Estimated Blood Loss: minimal [facility] 11:07 AM Post ECG NSR [facility] 11:08 AM At 11:07 the ACT was 117 seconds. [facility] 11:08 AM Fluoro Time: 4.8 [facility] 11:08 AM HR=61 bpm, LNZX=651/81 mmhg, SpO2=99.0 %, Comment=nsr 11:08 AM Isovue 370 - 200ml contrast [address] Bledsoe. [facility] 11:08 AM Radiation Dose 257.45 mGy [facility] 11:09 AM Plavix, Effient or Brilinta given No [facility] 11:09 AM Information taught Cardiac Cath [facility] 11:10 AM Education needs Procedure, Plan of Care, and Responsibilities of Patient in Care [facility] 11:10 AM Learning barriers :None [facility] 11:10 AM Education Methods Verbal [facility] 11:10 AM Education evaluation Able to repeat information [facility] 11:10 AM Time: 10:55 Patient comfortable and pain free: Yes [facility] 11:10 AM Time: 10:55LOC: 4 = Oriented but drowsy [facility] 11:10 AM Report given to Stanford PALMA Pt taken to 3A Room #52. 11:10 [facility] 11:11 AM Arterial sheath pulled using manual compression and V+ Pad for 15 minutes by Sonia Rodney RN [facility] 11:13 AM HR=49 bpm, KYCS=779/86 mmhg, RgI7=297.0 %, Comment=SB 11:18 AM HR=51 bpm, FXRP=986/84 mmhg, RcJ3=610.0 % 11:23 AM HR=48 bpm, IKIY=743/78 mmhg, VnV9=191.0 % 11:26 AM Time: 11:10LOC: 4 = Oriented but drowsy [facility] 11:26 AM Time: 11:10 Patient comfortable and pain free: Yes [facility] 11:26 AM Site status No bleeding/hematoma - Rt Groin as reported by Snoia Rodney RN at 11:26 celi 11:26 AM [facility] AM Vitals capture stopped. 11:30 AM patient moved to transport bed and complained of right groin pain. Hematoma observed to right groin. Pressure being held by Steffanie Link RN [facility] 11:31 AM Site status Hematoma - Rt Groin as reported by Steffanie Link RN at 11:31 <3 cm tsoummamado 11:37 AM hematoma resolved at this time. [facility] 11:37 AM Site status No bleeding/hematoma - Rt Groin as reported by Steffanie Link RN at 11:37 tsoummamado 11:37 AM Patient out of room: 11:37 [facility] Complications Complication None Hemodynamics Pressures Site Systolic/A Wave Diastolic/V Wave Mean LV 131 3 11 LV 119 1 10 AO 139 78 110 AO 119 65 88 AO 119 63 82 AO 129 79 101 Post Procedure Information Rhythm: NSR Post procedural instructions were given Site Checks Time Location Status Staff Sheath In? Note 11:26 AM Rt Groin No bleeding/hematoma Sonia Rodney RN 11:31 AM Rt Groin Hematoma Steffanie Link RN <3 cm 11:37 AM Rt Groin No bleeding/hematoma Steffanie Link RN Pulses Time Site Pre-Procedure Post-Procedure Note Bilateral DP & PT 2+ Bilateral radial 2+ Updated by Marycarmen Marcus RN on 12/28/2017 11:37:56 AM electronically signed on 12/28/2017 11:38:24 AM with status of Final
--- NOTE | 2017-12-28 12:22 | Event Note ---
Date of Encounter: 12/28/17 Time of Encounter: 12:15 - Cardiology Event Note Catheterization showed normal coronary arteries. Uncertain etiology of mild troponin elevation. Lab work, diagnostic testing, blood pressures overall appears stable. Cardiology will sign off, follow-up with PCP. Of note echo is pending. Cardiology will s/o. Consider noncardiac causes, consider PPI. Will DC IV Hep gtt.
[2017-12-28] MEDS ORDERED: Ketorolac 30 MG/ML VIAL IVP ONE (15:03)
[2017-12-28] MEDS ORDERED: traMADol 50 MG TABLET PO ONE (16:44)
[2017-12-28] MEDS: Nitroglycerin 0.4 MG TAB.SUBL SL PRN (16:50)
--- NOTE | 2017-12-28 18:32 | Internal Med Progress Note ---
Date of Encounter: 12/28/17 Time of Encounter: 11:00 - Assessment and plan (1) Chest pain Current Visit: Yes Status: Acute Assessment and plan: Patient with elevated cardiac biomarkers therefore cardiology was consulted with recommendations for heart catheterization which showed normal coronary arteries. Echocardiogram pending. Will also order a CT of the abdomen is patient did have some epigastric tenderness to palpation on exam. In addition will also start patient on IV PPI Qualifiers: Qualified Code(s): R07.9 - Chest pain, unspecified (2) HTN (hypertension) Current Visit: Yes Status: Acute Assessment and plan: Stable; continue home dose of JUANY inhibitor Qualifiers: Hypertension type: essential hypertension Qualified Code(s): I10 - Essential (primary) hypertension (3) Seizure Current Visit: Yes Status: Acute Assessment and plan: Will continue home dose of Keppra (4) Current smoker Current Visit: Yes Status: Chronic Assessment and plan: Smoking sensation (5) DVT prophylaxis Current Visit: Yes Status: Acute Assessment and plan: Subcutaneous heparin - Time Spent With Patient Total time spent is greater than 50% in coordination of care (as documented) at patient's floor/unit and/or counseling patient: - Subjective Interval history: Patient still complaining of chest discomfort this afternoon in addition to abdominal discomfort as well. - Constitutional Vitals: Temp Pulse Resp BP Pulse Ox 98.2 F 57 18 118/84 96 12/28/17 08:07 12/28/17 12:30 12/28/17 12:30 12/28/17 12:30 12/28/17 12:30 General appearance: Present: A&O X 3, no acute distress - Respiratory Respiratory exam: Present: CTAB. Absent: accessory muscle use, rales, rhonchi, wheezes - Cardiovascular Cardiovascular exam: Present: RRR, +S1, +S2. Absent: diastolic murmur, gallop, rubs, systolic murmur - GI/Abdominal GI/Abdominal exam: Present: soft, tenderness (Epigastric tenderness to palpation ) Internal Medicine: Result - Labs CBC & Chem 7: 12/28/17 00:52 12/28/17 00:52 Labs: Short CBC 12/27/17 12/28/17 Range/Units 19:10 00:52 WBC 5.5 4.9 (4.3-11.1) K/mcL Hgb 13.3 12.6 (11.5-15.4) g/dL Hct 37.6 36.1 (35.3-44.9) % Plt Count 241 214 (140-400) K/mcL Neutrophils # 2.1 (1.6-8.9) K/mcL BMP 12/27/17 12/28/17 19: 00:52 Sodium 141 141 Potassium 4.2 3.9 Chloride 110 H 109 H Carbon Dioxide 21 L 25 BUN 14 14 Creatinine 0.69 0.75 Glucose 103 97 Calcium 9.0 9.0 Cardiac Enzymes 12/27/17 12/28/17 12/28/17 Range/Units 19: 00:52 07:11 Troponin I 0.22 H* 0.23 H* 0.25 H* (< 0.04) ng/mL Liver Function 12/28/17 Range/Units 00:52 Total Bilirubin 0.8 (0.3-1.0) mg/dL AST 38 (13-39) Units/L ALT 42 (7-52) Units/L Alkaline Phosphatase 107 H (34-104) Units/L Albumin 3.8 (3.5-5.7) g/dL - ABG Interpretation ABG results: PT/INR, D-dimer PT 10.6 Seconds (9.4-12.1) 12/28/17 00:52 D-Dimer < 215 ng/mLFEU (0-500) 12/27/17 19:07 Consult Discharge Plan - Plan Referrals: Mima Flores, LYDIA [Primary Care Provider] -
[2017-12-28] MEDS ORDERED: Ondansetron 4 MG/2 ML VIAL IVP PRN (19:47)
[2017-12-28] MEDS ORDERED: *HR* Heparin 5,000 UNIT/ML VIAL SQ ONE (20:02)
[2017-12-28] MEDS: *HR* Heparin 5,000 UNIT/ML VIAL SQ SCH (21:04)
[2017-12-28] MEDS: 0.9 % Sodium Chloride 1,000 ML IVC SCH (21:05)
--- NOTE | 2017-12-28 23:09 | Event Note ---
Date of Encounter: 12/28/17 Time of Encounter: 21:14 Notified by patient's nurse MINERVA Martinez that [facility] called with results of CT of the abdomen/pelvis without contrast. Impression is CT showed possible minimal fat stranding along body of the pancreas which is nonspecific but but could represent mild pancreatitis. Consider correlation with lipase levels. Small hematoma in the subcutaneous soft tissues of the right inguinal region with extension into the extraperitoneal soft tissues of the right lower quadrant of the abdomen. Mild diverticulosis. Patient currently receiving 0.9 NS @ 100 mL/HR. Cardiac diet is currently ordered. Cardiac diet cancelled and NPO order placed d/t pts. complaint of nausea. IVP Zofran 4 mg every 6 hour when necessary for nausea ordered. Pt. to be monitored closely. A.M team to re- assess diet order based on pts. sx and pain level.
[2017-12-29 00:23] LABS: Amylase 25 Units/L (29-103); Lipase 20 Units/L (11-82)
[2017-12-29] MEDS: *HR* Heparin 5,000 UNIT/ML VIAL SQ SCH (05:42)
[2017-12-29] MEDS: 0.9 % Sodium Chloride 1,000 ML IVC SCH (05:43)
[2017-12-29] MEDS ORDERED: Pantoprazole 40 MG VIAL IVP SCH (06:00)
[2017-12-29] MEDS: Aspirin 81 MG TAB.CHEW PO SCH (08:22)
[2017-12-29] MEDS: Nicotine 14 MG PATCH.TD24 TD SCH (08:23)
[2017-12-29] MEDS: levETIRAcetam 500 MG/5 ML UDC PO SCH (08:23)
--- NOTE | 2017-12-29 09:37 | Electrocardiograph Report ---
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
--- NOTE | 2017-12-29 09:37 | Electrocardiograph Report ---
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
[2017-12-29] MEDS ORDERED: Tiotropium 18 MCG inhalation IH SCH (10:00)
[2017-12-29 10:25] VITALS: BP 98/71
[2017-12-29] MEDS: Budesonide/Formoterol 80/4.5 MDI IH SCH (10:35)
[2017-12-29 10:37] LABS: Basophils % 0.7 %; Eosinophils # 0.1 K/mcL (0.0-0.6); Eosinophils % 1.3 %; Hematocrit 35.8 % (35.3-44.9); Hemoglobin 12.1 g/dL (11.5-15.4); Lymphocytes # 1.9 K/mcL (0.6-4.6); Lymphocytes % 41.1 %; Mean Corpuscular HGB Conc 33.8 g/dL (31.6-35.5); Mean Corpuscular Hemoglobin 31.8 pg (28.0-33.3); Mean Platelet Volume 10.1 fL (9.4-12.4); Monocytes # 0.5 K/mcL (0.0-1.3); Monocytes % 10.2 %; Neutrophils # 2.1 K/mcL (1.6-8.9); Nucleated Red Blood Cells 0.4 /100 WBC (0); Platelet Count 169 K/mcL (140-400); Red Blood Count 3.81 M/mcL (3.82-4.97); Red Cell Distribution Width 11.9 % (11.5-14.5); Segmented Neutrophils % 46.7 %
[2017-12-29 10:45] LABS: BUN/Creatinine Ratio 18 (6-26); Blood Urea Nitrogen 17 mg/dL (6-20); Calcium 8.7 mg/dL (8.6-10.3); Carbon Dioxide 25 mEq/L (23-29); Chloride 113 mEq/L (98-107); Glucose 91 mg/dL (70-105); Osmolality,Calculated 295 (280-300); Potassium 4.2 mEq/L (3.5-5.1); Sodium 142 mEq/L (136-145); eGFR For African Americans > 60 (> 60); eGFR For Non-African Americans > 60 (> 60)
--- NOTE | 2017-12-29 12:47 | Discharge Summary ---
Date of Encounter: 12/29/17 Time of Encounter: 11:00 - Discharge Diagnosis (1) Chest pain Priority: Primary Status: Acute Qualifiers: Qualified Code(s): R07.9 - Chest pain, unspecified (2) HTN (hypertension) Priority: Secondary Status: Acute Qualifiers: Hypertension type: essential hypertension Qualified Code(s): I10 - Essential (primary) hypertension (3) Seizure Priority: Secondary Status: Acute (4) Current smoker Priority: Secondary Status: Chronic Hospital course: Patient is a 47-year-old female with past medical history of being a current smoker, hypertension, seizures and mood disorder with prior psychiatric inpatient stay who presents to the ER on 12/28/17 due to chest pain. Patient states CP currently 12/31. She states she did not get nitro at [facility]. Recently saw her [facility] for the chest pain and PCP noted that her BP was elevated and prescribed her BP medication. At [facility] ER patient was noted to have a troponin of 0.20, EKG SR. neg chest x ray. Patient was transferred to [facility] for further workup. During patients hospital stay cardiology was consulted with recommendations about left heart catheterization which showed normal coronary arteries. Patient will be discharged to follow-up with primary care provider. - Time Spent with Patient Total time spent providing and/or coordinating discharge services: Less than 30 minutes - Discharge Medications Home Medications: Albuterol Sulfate [Proair Hfa] 2 puff IH Q4-6H PRN 12/28/17 [History] Fluticasone/Vilanterol [Breo Ellipta 100-25 Mcg INH] 1 puff IH QPM 12/28/17 [ History] LevETIRAcetam [Keppra] 1,000 mg PO HS 12/28/17 [History] LevETIRAcetam [Keppra] 500 mg PO QAM 12/28/17 [History] Lisinopril [Zestril] 10 mg PO DAILY 12/28/17 [History] Ondansetron HCl [Zofran] 4 mg PO Q8HR PRN 12/28/17 [History] Tiotropium [Spiriva] 18 mcg IH QAM 12/28/17 [History] Tizanidine HCl 4 mg PO TID 12/28/17 [History] diazePAM [Valium] 5 mg PO TID PRN 12/28/17 [History] rOPINIRole [Requip] 0.25 mg PO HS 12/28/17 [History] Allergies/Adverse Reactions: 3 Allergy/AdvReac Type Severity Reaction Status Date / Time Cyclobenzaprine Allergy Swelling Verified 12/27/17 12:00 [From Flexeril] of Lip/Tongue/Throat Date of admission: 12/28/17 18:52 Primary care physician: Mima Flores Consults: 12/28/17 01:48 Consult to Cardiology [CONS] Routine Comment: Consulting Provider: [facility] Reason for Consult: NSTEMI Call Completed: No - Constitutional Vitals: Temp Pulse Resp BP Pulse Ox 97.9 F 66 23 98/71 98 12/29/17 10:23 12/29/17 10:23 12/29/17 10:35 12/29/17 10:23 12/29/17 10:35 General appearance: Present: A&O X 3, no acute distress - Respiratory Respiratory exam: Present: CTAB. Absent: accessory muscle use, rales, rhonchi, wheezes - Cardiovascular Cardiovascular exam: Present: RRR, +S1, +S2. Absent: diastolic murmur, gallop, rubs, systolic murmur - Patient Status Disposition: Home, Self-Care - Discharge Instructions Instructions: Chest Pain (DC), Right Heart Catheterization (DC) Follow Up With: Mima Flores CNP [Primary Care Provider] - (Patient has to call the office)
== END 2017-12-29 13:20 | disposition home or self-care (01) | DRG 287 ==
LOC: 3ANU → SUATTDRO 15:57
PROVIDERS: ADMIT Internal Medicine; ATTEND Hospitalist

== ENCOUNTER 2018-08-29 08:13 | Inpatient (IN) ==
--- NOTE | 2018-08-29 11:10 | Internal Med History&Physical ---
Date of Encounter: 08/29/18 Time of Encounter: 11:05 Internal Medicine - H&P: HPI Chief complaint: chest pain Admitted From: Home Plans for Post Hospital Care: Home History of present illness: Ms. Marrufo is a 48 year old female past medical history of COPD, hypertension, and STEMI, seizure disorder, anxiety, depression, prior cocaine and amphetamine use came in with complain of chest pain for the past 3 days. Patient had sharp pain on her left side of her chest which occasionally goes into her left shoulder blade. Patient had associated nausea and lightheadedness yesterday which made her come to the ER. Patient had left heart catheterization in December which showed normal coronaries and patient was discharged with diltiazem for possible coronary spasm. Pain is sharp in nature and relaxes in veins more or less constant. Denies any worsening with deep breath. Has some cough in the morning but denies any phlegm production fevers runny nose. Denies any shortness of breath or leg swelling. Patient noted a blood pressure was mildly elevated with 157/113 and took one extra blood pressure medication for last 2 days. Patient was examined in ER at bedside. Did complain of occasional sharp chest pain. Intensity vaccinations and remains within seconds. Denies any shortness of breath. Denies any skin rash tingling or numbness. Patient had some tingling at baseline and mentions she has a history of PVD. Denies currently any sweating. Patient was noted to have mildly elevated troponin in ER, unremarkable chest x-ray and EKG. Past Med Surg Social Fam HX - Past Medical History Medical history: COPD, hypertension, myocardial infarction, seizures Additional medical history: Patient states last seizure was approximately one month ago Psychiatric history: anxiety, depression, panic disorder, PTSD, prior suicide attempt, previous psychiatric hospitalization - Past Surgical History Surgical History: hysterectomy, other Additional surgical history: kidney stones - Social History Smoking Status: Current every day smoker Packs per day: 1 Smokeless Tobacco Status: No Alcohol use: heavy Drug use: none - Family History Father Living Status: Hx Family Cardiac Disorders: Yes (quadruple bypass) Hx Family Respiratory Disorders: No Hx Family Cancer: No Hx Family GI Disorders: No Hx Family Endocrine Disorder: No Hx Family Neuromuscular Disorders: No Hx Family Neurologic Disorders: Yes (CVA) Hx Family HEENT Disorders: No Hx Family Autoimmune Disorders: No Mother Living Status: Hx Family Cardiac Disorders: No Hx Family Respiratory Disorders: No Hx Family Cancer: No Hx Family GI Disorders: No Hx Family Endocrine Disorder: No Hx Family Neuromuscular Disorders: No Hx Family Neurologic Disorders: Yes (CVA) Hx Family HEENT Disorders: No Hx Family Autoimmune Disorders: No Internal Medicine - H&P: Meds Albuterol Sulfate [Proair Hfa] 2 puff IH Q4-6H PRN 12/28/17 [History] Fluticasone/Vilanterol [Breo Ellipta 100-25 Mcg INH] 1 puff IH QPM 12/28/17 [History] LevETIRAcetam [Keppra] 1,000 mg PO HS 12/28/17 [History] LevETIRAcetam [Keppra] 500 mg PO QAM 12/28/17 [History] Lisinopril [Zestril] 10 mg PO DAILY 12/28/17 [History] Tiotropium [Spiriva] 18 mcg IH QAM 12/28/17 [History] diazePAM [Valium] 5 mg PO TID PRN 12/28/17 [History] Diltiazem CD (24hr) [Cardizem CD] 120 mg PO DAILY 02/14/18 [History] Aspirin [Lo-Dose Aspirin EC] 81 mg PO DAILY 08/29/18 [History] Allergy/AdvReac Type Severity Reaction Status Date / Time Cyclobenzaprine Allergy Swelling Verified 08/29/18 06:07 [From Flexeril] of Lip/Tongue/Throat All Systems PM: A 10-system review of systems was performed and is negative for pertinent fi ndings except as documented above in the HPI. - Constitutional Vitals: Temp Pulse Resp BP Pulse Ox 97.6 F 73 18 122/85 96 08/29/18 10:04 08/29/18 10:04 08/29/18 10:04 08/29/18 10:04 08/29/18 10:04 Exam: Constitutional: Vitals as noted. Conversant. No Apparent Distress. Eyes : Sclera white, conjunctiva clear, no lid lag, PEARLA. ENT : Grossly normal hearing. Oropharyngeal exam unremarkable. Moist mucus membranes. No JVD, no cervical lymphadenopathy. no thyromegaly or mass. Respiratory : Clear to auscultation bilaterally. No accessory muscle use, rales, rhonchi or wheezes Cardiovascular : RRR, +S1, +S2. no murmur, gallop, rubs. No chest wall tenderness GI/Abdominal : Soft, Non-tender, Non-distended, normal bowel sounds, soft, no peritoneal signs. no orgenomegaly or mass appreciated. no hernia. Musculoskeletal: no deformity noted. Trace edema b/l. warm extremities, pulses palpable and symmetrical in UE/LE. no calf tenderness. Neurological: AO X3, CN II-XII grossly intact, grossly normal motor and sensory exam. Skin: No skin rash, lesions or ulcers noted. Internal Med - H&P Results - EKG Data -: EKG Interpreted by Myself EKG shows normal: sinus rhythm - Assessment and plan (1) Chest pain Current Visit: No Status: Acute Assessment and plan: - Patient currently with waxing and waning chest pain. EKG without acute ischemic changes. - Troponin elevated at 0.18. Trend troponins. Will trend troponin. - Had cardiac catheterization in December 2017 which showed angiographically normal coronary arteries and EF of 55. Echo showed EF of 60% and normal wall motion in January. - Obtained urine toxicology screen and respiratory infectious panel. - cardiology consuled. Recommended to start heparin for now. Qualifiers: Qualified Code(s): R07.9 - Chest pain, unspecified (2) Elevated troponin I level Current Visit: No Status: Acute Assessment and plan: As above (3) HTN (hypertension) Current Visit: No Status: Acute Assessment and plan: - currently controlled - Continue home medications. Qualifiers: Hypertension type: essential hypertension Qualified Code(s): I10 - Essential (primary) hypertension (4) Seizure Current Visit: No Status: Acute Assessment and plan: - Continue home Keppra (5) COPD (chronic obstructive pulmonary disease) Current Visit: No Status: Chronic Assessment and plan: Continue home medications Qualifiers: Qualified Code(s): J44.9 - Chronic obstructive pulmonary disease, unspecified (6) Anxiety Current Visit: Yes Status: Acute Assessment and plan: continue home medications. - Time Spent With Patient Total time spent is greater than 50% in coordination of care (as documented) at patient's floor/unit and/or counseling patient:
[2018-08-29] MEDS ORDERED: *HR* Heparin 5,000 UNIT/ML VIAL IVP ONE (11:44)
[2018-08-29] MEDS ORDERED: *HR* Heparin 5,000 UNIT/ML VIAL IVP PRN ×2 (11:44)
[2018-08-29] MEDS ORDERED: Heparin 25,000 UNIT/500 ML D5W 25,000 UNIT/500 ML BAG IVC SCH (11:45)
[2018-08-29] MEDS ORDERED: Aspirin 81 MG TAB.CHEW PO ONE (11:49)
[2018-08-29] MEDS ORDERED: Nitroglycerin 0.4 MG TAB.SUBL SL PRN (11:49)
[2018-08-29] MEDS ORDERED: GI Cocktail 40 ML EACH PO ONE (14:30)
[2018-08-29] MEDS ORDERED: Acetaminophen 325 MG TABLET PO PRN (16:06)
--- NOTE | 2018-08-29 16:08 | Cardiology Consult Note ---
Date of Encounter: 08/29/18 Time of Encounter: 14:00 Assessment and Plan (1) Elevated troponin I level Current Visit: No Status: Acute Per cardiology: -Presents with atypical chest pain. -Troponins 0.18, 0.27. -Of note, similar event 12/2017 with peak troponin 0.29, underwent LHC without significant CAD on LHC report. Was started on CCB for possible coronary vasospasm, -TTE 02/2018 with LVEF 60%, no wall motion abnormalities. -ECG with no acute ischemic changes, unchanged from baseline. -LHC films reviewed by , with 50% circumflex lesion noted, not previously mentioned on cath report. -Elevated troponin possible coronary vasospasm vs NSTEMI I or II. -Heparin drip, asa, statin, bb. -will repeat limited TTE with bubble study. -NPO after midnight, can consider repeat LHC in am. -Of note, also reports headache and "funny" feeling in her head-hospitalist team notified. -ALso, reports daughter has srnii wilder-hospitalist nofitied ?hypercoagulable state. -Will continue to monitor. (2) Atypical chest pain Current Visit: No Status: Acute Per cardiology: -See elevated troponin as above. Discussion w patient/family: The assessment and plan as outlined above was discussed with the patient and/or family members who expressed understanding and agreement. All questions were answered. Thank you for involving us in the care of your patient. Please call with any questions. Discussed and reviewed with . History of Present Illness Consult date: 08/29/18 Requesting physician: Wilbur Vega Consult reason: elevated troponin Chief complaint: chest pain History of present illness: Ms. Marrufo is a 48 year old female with a relevant past medical history of diverticulitis, COPD, hepatitis C, epilepsy, COPD, tobacco abuse, anxiety, depression, who presented to [facility] with complaints of chest pain. Patient reports chest pain started at rest. States feels like a sharp pain that goes through her chest and into her left should blade. Patient denies exertional component to chest pain. States just stays the same. Denies worsening shortness of breath. Also reports "funny" feeling in her head and headache. Reports this symptoms similar to previous symptoms when she was admitted in December 2017. Past Med Surg Social Fam HX - Past Medical History Attestation: Yes The following information was validated with the patient. Source: patient, old records reviewed, obtained from family Medical history: COPD, hypertension, myocardial infarction, seizures Additional medical history: Patient states last seizure was approximately one month ago Psychiatric history: anxiety, depression, panic disorder, PTSD, prior suicide attempt, previous psychiatric hospitalization - Past Surgical History Surgical History: hysterectomy, other Additional surgical history: kidney stones - Social History Smoking Status: Current every day smoker Packs per day: 1 Smokeless Tobacco Status: No Alcohol use: heavy Drug use: none - Family History Father Living Status: Hx Family Cardiac Disorders: Yes (quadruple bypass) Hx Family Respiratory Disorders: No Hx Family Cancer: No Hx Family GI Disorders: No Hx Family Endocrine Disorder: No Hx Family Neuromuscular Disorders: No Hx Family Neurologic Disorders: Yes (CVA) Hx Family HEENT Disorders: No Hx Family Autoimmune Disorders: No Mother Living Status: Hx Family Cardiac Disorders: No Hx Family Respiratory Disorders: No Hx Family Cancer: No Hx Family GI Disorders: No Hx Family Endocrine Disorder: No Hx Family Neuromuscular Disorders: No Hx Family Neurologic Disorders: Yes (CVA) Hx Family HEENT Disorders: No Hx Family Autoimmune Disorders: No Medications and Allergies Albuterol Sulfate [Proair Hfa] 2 puff IH Q4-6H PRN 12/28/17 [History] Fluticasone/Vilanterol [Breo Ellipta 100-25 Mcg INH] 1 puff IH QPM 12/28/17 [History] LevETIRAcetam [Keppra] 1,000 mg PO HS 12/28/17 [History] LevETIRAcetam [Keppra] 500 mg PO QAM 12/28/17 [History] Lisinopril [Zestril] 10 mg PO DAILY 12/28/17 [History] Tiotropium [Spiriva] 18 mcg IH QAM 12/28/17 [History] diazePAM [Valium] 5 mg PO TID PRN 12/28/17 [History] Diltiazem CD (24hr) [Cardizem CD] 120 mg PO DAILY 02/14/18 [History] Aspirin [Lo-Dose Aspirin EC] 81 mg PO DAILY 08/29/18 [History] Allergy/AdvReac Type Severity Reaction Status Date / Time Cyclobenzaprine Allergy Swelling Verified 08/29/18 06:07 [From Flexeril] of Lip/Tongue/Throat All Systems Review: The remainder of the systems were reviewed and are negative - Cardiovascular Cardiovascular: as per HPI, chest pain at rest - Neurological Neurological: other (Headache) Physical Examination Vital Signs Temperature 97.6 F 08/29/18 10:04 Pulse Rate 73 08/29/18 10:04 Respiratory Rate 18 08/29/18 10:04 Blood Pressure 122/85 08/29/18 10:04 O2 Sat by Pulse Oximetry 96 08/29/18 10:04 Temperature 97.6 F 08/29/18 10:04 Pulse Rate 65 08/29/18 11:32 Respiratory Rate 16 08/29/18 11:32 Blood Pressure 110/84 08/29/18 11:32 O2 Sat by Pulse Oximetry 98 08/29/18 11:32 General: Conversant, No Apparent Distress HEENT: Atraumatic, Normocephaly, Mucus Membranes Moist Neck: No JVD, Normal carotid pulses Cardiac: Reg Rate and Rhythm, Normal S1 and S2, No Murmur Lungs: Normal Breath Sounds, No Wheeze, Rales, Rhonchi Neuro: Alert and responsive, No focal deficits noted Abdomen: Soft, Non-Tender Skin: No rashes noted on visualized skin Musculoskeletal: No Chest Wall Tenderness Extremities: No Clubbing, No Cyanosis, No Edema, Normal Pulses Results Lab Results Active Medications Acetaminophen (Tylenol) 650 mg PO Q6HR PRN PRN Reason: Fever Stop: 02/28/19 16:07 Albuterol Sulfate (Albuterol Inhaler) 2 puff IH Q4H PRN PRN Reason: Dyspnea Stop: 02/28/19 11:46 Aspirin (Aspirin Ec) 81 mg PO DAILY GINA Stop: 03/01/19 09:01 Atorvastatin Calcium (Lipitor) 40 mg PO HS GINA Stop: 02/28/19 21:01 Budesonide/Formoterol Fumarate (Symbicort) 2 puff IH QPM GINA Stop: 02/28/19 18:01 Diazepam (Valium) 5 mg PO TID PRN PRN Reason: Anxiety Stop: 02/28/19 11:46 Diltiazem HCl (Cardizem Cd) 120 mg PO DAILY GINA Stop: 03/01/19 09:01 Heparin Sodium (Porcine) (Heparin) 6,000 unit 70 unit/kg (6000 unit) IVP Q6HR PRN PRN Reason: SEE COMMENTS Stop: 02/28/19 11:45 Heparin Sodium (Porcine) (Heparin) 3,000 unit 35 unit/kg (3000 unit) IVP Q6H PRN PRN Reason: SEE COMMENTS Stop: 02/28/19 11:45 Heparin Sodium/Dextrose (Heparin 25,000 Unit/500 Ml D5w) 25,000 unit in 500 mls @ 24.131 mls/hr IVC .[id number] [facility]; Protocol Stop: 02/28/19 11:46 Last Admin: 08/29/18 12:29 Dose: 14 unit/kg/hr, 24.131 mls/hr Levetiracetam (Keppra) 500 mg PO QAM [facility] Stop: 03/01/19 09:01 Levetiracetam (Keppra) 1,000 mg PO HS [facility] Stop: 02/28/19 21:01 Lisinopril (Zestril) 10 mg PO DAILY [facility]; Protocol Stop: 03/01/19 09:01 Nitroglycerin (Nitroglycerin) 0.4 mg SL Q5MIN PRN PRN Reason: Chest Pain Stop: 02/28/19 11:50 Tiotropium [place] (Spiriva) 18 mcg IH DAILYR GINA Stop: 03/01/19 10:01 - Imaging and Cardiology Chest Xray: report reviewed Echo: pending, report reviewed Cardiac cath: report reviewed - EKG Interpretation EKG results cardiology: personally reviewed (ECG with SR, HR 79. Unchanged from baseline ECG.) Consult Discharge Plan - Plan Referrals: Mima Flores, LYDIA [Primary Care Provider] -
[2018-08-29] MEDS ORDERED: Budesonide/Formoterol 160/4.5 1 PUFF INH IH SCH (18:00)
[2018-08-29] MEDS: Budesonide/Formoterol 160/4.5 1 PUFF INH IH SCH (20:37)
[2018-08-29] MEDS ORDERED: levETIRAcetam 250 MG TABLET PO SCH (21:00)
[2018-08-29] MEDS: diazePAM 5 MG TABLET PO PRN (22:54)
[2018-08-30] MEDS: Budesonide/Formoterol 160/4.5 1 PUFF INH IH SCH (08:04)
[2018-08-30] MEDS ORDERED: Diltiazem CD (24hr) 120 MG CAPSULE PO SCH (09:00)
[2018-08-30] MEDS ORDERED: levETIRAcetam 250 MG TABLET PO SCH (09:00)
[2018-08-30] MEDS ORDERED: Aspirin Enteric Coated 81 MG Tablet PO SCH (09:00)
[2018-08-30] MEDS ORDERED: Metoprolol XL (24 HR) Succ 25 MG TAB.ER.24H PO SCH (09:00)
[2018-08-30 09:46] LABS: Amphetamine Screen,Urine Negative ng/mL (Cutoff=1000); Barbiturate Screen,Urine Negative ng/mL (Cutoff=200); Benzodiazepines Screen,Urine Positive ng/mL (Cutoff=200); Cannabinoid Screen,Urine Negative ng/mL (Cutoff = 50); Cocaine Screen,Urine Negative ng/mL (Cutoff= 300); Opiate Screen,Urine Negative ng/mL (Cutoff=300); Phencyclidine Screen,Urine Negative ng/mL (Cutoff=25)
[2018-08-30] MEDS ORDERED: Tiotropium 18 MCG inhalation IH SCH (10:00)
[2018-08-30] MEDS: diazePAM 5 MG TABLET PO PRN (10:58)
--- NOTE | 2018-08-30 11:17 | Event Note ---
Date of Encounter: 08/30/18 Time of Encounter: 11:13 Patient was seen and examined. I agree with the progress note as written by the resident physician. Patient with past medical history of COPD, hypertension, seizure disorder, anxiety, Hep C, depression, prior cocaine and amphetamine use came in with complain of chest pain for the past 3 days. Transferred from [facility]. Patient had left heart catheterization in December which showed normal coronaries and patient was discharged with diltiazem for possible coronary spasm. EKG with n othing acute. Trops elevated. Cardiology seeing and plans for [facility]. Has elevated liver enzymes but has h/o Hep C. Trops .17, .21, .17. On heparin drip here. Echo with nothing remarkable. GEN: NAD CVS: RRR. S1, S2, No m/r/g RESP: CTAB ABD: Soft, NT, ND, +BS EXT: No edema. . 2+ DP. No rashes NEURO: Nonfocal c/w heparin drip. LHC per cardiology. c/w home meds f/u srini de santiago's panel
--- NOTE | 2018-08-30 11:21 | Event Note ---
Date of Encounter: 08/30/18 Time of Encounter: 11:20 - Cardiology Event Note C/o CP last night, c/o CP this am 11/30. Patient and family desire to proceed with catheterization today as potentially discussed yesterday. Discussed and reviewed with Dr. Montero, plan for catheterization today. Further recognitions pending catheterization. All questions answered.
[2018-08-30 12:19] LABS: Alanine Aminotransferase 68 Units/L (7-52); Albumin/Globulin Ratio 1.5 (1.1-2.2); Alkaline Phosphatase 110 Units/L (34-104); Aspartate Amino Transferase 59 Units/L (13-39); BUN/Creatinine Ratio 20 (6-26); Bilirubin,Total 0.7 mg/dL (0.3-1.0); Blood Urea Nitrogen 11 mg/dL (6-20); Calcium 9.1 mg/dL (8.6-10.3); Carbon Dioxide 23 mEq/L (23-29); Chloride 110 mEq/L (98-107); Globulin 2.7 g/dL (2.4-3.5); Glucose 110 mg/dL (70-105); Osmolality,Calculated 290 (280-300); Sodium 140 mEq/L (136-145); Total Protein 6.7 g/dL (6.4-8.9); eGFR For Non-African Americans > 60 (> 60)
[2018-08-30] MEDS ORDERED: ISOVUE-370 200 ML INFUS..BTL ONE (12:23)
[2018-08-30] MEDS ORDERED: *HR* Heparin 10,000 UNIT/10 ML VIAL ONE (12:23)
[2018-08-30] MEDS ORDERED: Nitroglycerin 1,000 MCG/10 ML VIAL IV ONE (12:23)
[2018-08-30] MEDS ORDERED: Heparin 1,000 UNITS/500 mL 500 ML ONE (12:23)
[2018-08-30] MEDS ORDERED: 0.9 % Sodium Chloride 1,000 ML ONE ×2 (12:23→12:40)
[2018-08-30] MEDS ORDERED: *HR* Midazolam HCl 2 MG/2 ML VIAL ONE ×3 (12:39→13:12)
[2018-08-30] MEDS ORDERED: Verapamil 5 MG/2 ML VIAL ONE (12:39)
[2018-08-30] MEDS ORDERED: *HR* FentaNYL (PF) 100 MCG/2 ML VIAL ONE ×2 (12:39→13:12)
--- NOTE | 2018-08-30 13:05 | Pre-Sedation Evaluation ---
Pre-sedation evaluation - Pre-sedation checklist Date of procedure: 08/30/18 Procedure: heart cath Recent Vitals: Last Vital Signs Temp 98.3 F 08/30/18 12:06 Pulse 74 08/30/18 12:06 Resp 16 08/30/18 12:06 BP 124/95 08/30/18 12:06 Pulse Ox 96 08/30/18 12:06 H&P (including ROS) documented in medical record: Yes Previous reaction to sedatives/anesthetics: No Dietary Status: NPO 6 hours prior to procedure Dentition: No loose teeth or bridges ASA Classification *see protocol: CLASS II-Mild systemic disease Plan of Care: Pt appropriate candidate for procedure/moderate/conscious sedation, Risks/benefits of procedure/sedation discussed w/ patient/family Cardiac Registry (Cardio Only) - Functional Capacity Functional Capacity: >=4 METS with symptoms - Clincal Frailty Scale Clinical Frailty Scale: Managing Well
--- NOTE | 2018-08-30 13:58 | Invasive Diagnostic Lab Proc ---
Name: Vita Marrufo Date of Study: 08/30/2018 Date: 1970 Ht: 66.1in Medical Record#: [id number] Age: 48 Wt: 187.39lb Gender: Female BSA: 1.95 Order #: [id number] BMI: 30.12 Physicians Procedure Physician: Kennedy Montero MD, [facility] Referring MD: Referring MD: Staff Name Position Time In Sites, Jane RT (R) Monitor 12:44 PM Jaspreet Washington RT (R) Scrub 12:44 PM Bebo Toussaint RN Personal Driver 12:44 PM Indications Indication Non-Stemi Procedures Performed Procedure L HRT ARTERY/VENTRICLE ANGIO IV Doppler BLD Flow 1st Vessel Pre-Procedure Checklist Informed consent is complete signed and on chart. H&P is on chart. ID band is on and ID verified with patient. Patient NPO for procedure The procedure was described for the patient and questions were answered. Blood Pressure: 110/80 ECG is on chart. Rhythm: NSR Plan of Care Patient will tolerate the procedure without complications. Adequate level of comfort will be maintained. Hemodynamics will remain stable Patient will recover from procedure without complications. Respiratory function will be maintained. Cardiac rhythm will remain stable. Patient temperature will be maintained. Patient and/or family have verbalized understanding of the procedure. Patient Education Chief Complaint/Reason for Test: Cardiac Cath Developmental Category: Adult (18-64 years) Developmentally Appropriate for Age: Yes Learning Barriers: None Education Needs: Procedure Education Method: Verbal Information Taught: Cardiac Cath Educational Evaluation: Able to repeat information Intravenous Access Time IV Size Location DC'd Fluid/Drip Rate Units RN 22g 1" Patent On Arrival Lt Wrist 0.9NaCl 50 ml/hr Bebo Toussaint RN Allergies Cyclobenzaprine Vital Signs Time BP (mmHg) HR (bpm) O2 Sat. RR (bpm) LOC / % 01:03 PM / % 5 = Fully awake and oriented or at pre-proc level 01:03 PM / % 4 = Oriented but drowsy 01:18 PM / % 4 = Oriented but drowsy 01:01 PM 140 / 90 62 98 % 19 01:06 PM 126 / 83 66 97 % 17 01:12 PM 120 / 73 56 98 % 21 01:16 PM 119 / 77 56 97 % 19 01:21 PM 113 / 83 66 98 % 22 01:26 PM 117 / 79 62 100 % 18 01:32 PM 113 / 73 57 99 % 17 01:36 PM 113 / 76 75 98 % 21 01:41 PM 122 / 76 59 99 % 24 Procedural Medications Time Medication Dose Units Method Given By 01:03 PM Oxygen 2 L/min nasal cannula Bebo Toussaint RN 01:03 PM Versed 2 mg Intravenous Bebo Toussaint RN 01:03 PM Fentanyl 50 mcg Intravenous Bebo Toussaint RN 01:07 PM Versed 1 mg Intravenous Bebo Toussaint RN 01:07 PM Fentanyl 25 mcg Intravenous Bebo Toussaint RN 01:09 PM Lidocaine 2% 19 ml Subcutaneous Kennedy Montero MD, FACC 01:11 PM Versed 1 mg Intravenous Bebo Toussaint RN 01:11 PM Fentanyl 25 mcg Intravenous Bebo Toussaint RN 01:29 PM Heparin 3000 units Intravenous Bebo Toussaint RN 01:30 PM Nitroglycerin 200 mcg Intracoronary Kennedy Montero MD 01:31 PM Versed 1 mg Intravenous Bebo Toussaint RN 01:32 PM 90mg Adenosine in 90 ml 0.9 NS 714 mcg Intravenous Bebo Toussaint RN 01:35 PM Adenosine Dc'd Bebo Toussaint RN Lan Score Preprocedure Postprocedure Activity 2- Moves 4 extremities sustained head lift Activity 2- Moves 4 extremities sustained head lift Circulation 2- SBP +/= 20 points of pre-anesthetic level Circulation 2- SBP +/= 20 points of pre-anesthetic level Consciousness 2- Awake and alert oriented x 3 Consciousness 2- Awake and alert oriented x 3 O2 Saturation 2- Able to maintain O2 satruation of 92% on room air O2 Saturation 2- Able to maintain O2 satruation of 92% on room air Respiratory 2- Able to deep breathe and cough well Respiratory 2- Able to deep breathe and cough well Total Score 10 Total Score 10 Contrast Agent: Isovue Diagnostic Contrast: 86 ml Total Contrast: 86 ml Fluoro Dose: 20 mGy Activated Clotting Time Time Seconds to Clot 01:29 PM 131 Procedure Log Time Note Enter By 12:24 PM CathStat 12:44 PM Jane Nguyễn RT (R) Position: Monitor Time in: 12:44 tsites 12:44 PM Jaspreet Washington RT (R) Position: Scrub Time in: 12:44 tsites 12:44 PM Bebo Toussaint RN Position: Personal Driver Time in: 12:44 tsites 12:44 PM Patient charges- Angio tray pack, Navilyst 3mm J, Pulse Oximetry and ACIST tubing and transducer tsites 12:55 PM 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 Informed consent was obtained. tsites 12:55 PM Procedure start 12:55 tsites 01:00 PM Vitals capture started with the following parameters, Patient=Adult, Interval=5 min, Initial Ksrkfopt=223 mmHg, Deflation Rate=3 mmHg, Cuff placed on Right Arm 01: PM HR=62 bpm, JFXC=842/90 mmhg, SpO2=98 %, Resp=19 B/min 01:02 PM Recorded ECG: HR=65 Condition=Condition 1 01:02 PM Hair removed from procedure site in holding area using clippers. Bilateral groin prepped with Chloraprep by Jane Nguyễn), then patient was draped. Skin intact. tsites 01:03 PM Time: 13:03 Oxygen on at 2 L/min per nasal cannula by Bebo Toussaint RN tsites :03 PM Time: 13:03 Patient comfortable and pain free: Yes tsites :03 PM Time: 13:03LOC: 5 = Fully awake and oriented or at pre-proc level tsites 01:03 PM Clinical Presentation: Unstable angina tsites :03 PM Time: 13:03 Versed 2 mg Intravenous Given by Bebo Toussaint RN tsites 01:04 PM Time: 13:03 Fentanyl 50 mcg Intravenous Given by Bebo Toussaint RN tsites 01:04 PM Pressure channel 1 zeroed. 01:06 PM HR=66 bpm, JBOQ=313/83 mmhg, SpO2=97.0 %, Resp=17 B/min, EtCO2=36 mmHg 01:07 PM Time: 13:07 Versed 1 mg Intravenous Given by Bebo Toussaint RN tsites : PM Time: 13:07 Fentanyl 25 mcg Intravenous Given by Bebo Toussaint RN tsites :09 PM Time out was performed according to hospital policy. Conscious sedation and anesthesia was achieved (see medication log with in this report above) tsites 01:11 PM Time: 13:09 19 ml Lidocaine 2% to right groin Subcutaneous Given by Kennedy Montero MD, [facility] tsites 01:11 PM Access obtained by percutaneous puncture. 5Fr 10cm Terumo Windthorst sheath placed in right Femoral artery. [id number] tsites 01:11 PM Time: 13:11 Versed 1 mg Intravenous Given by Bebo Toussaint RN tsites 01:11 PM Time: 13:11 Fentanyl 25 mcg Intravenous Given by Bebo Toussaint RN tsites 01:12 PM HR=56 bpm, BAOF=077/73 mmhg, SpO2=98.0 %, Resp=21 B/min, EtCO2=36 mmHg 01:13 PM Unsuccessful access attempt # 1 into the right Femoral artery. Manual pressure applied to achieve hemostasis.. tsites 01:13 PM Unsuccessful access attempt # 2 into the right Femoral artery. Manual pressure applied to achieve hemostasis.. tsites 01:16 PM Access obtained by percutaneous puncture. 5Fr 10cm Terumo Windthorst sheath placed in right Femoral artery. [id number] tsites 01:16 PM 5Fr FL 3.5 catheter inserted over the wire [facility] tsites :16 PM 0.035 150cm Navilyst 3mmJ wire [id number] tsites 01:16 PM HR=56 bpm, EQVK=101/77 mmhg, SpO2=97.0 %, Resp=19 B/min 01:17 PM LCA angiography performed in multiple views. tsites :18 PM Time: 13:03LOC: 4 = Oriented but drowsy tsites :18 PM Time: 13:03 Patient comfortable and pain free: Yes tsites 01:18 PM Recorded Pressure: Ao, HR=62, Condition=Condition 1 (Aorta) Ao 97/65/81 01:19 PM wire reinserted catheter removed tsites :19 PM 5Fr FR 4 catheter inserted over the wire [facility] tsites 01:20 PM RCA angiography performed in multiple views. tsites 01:20 PM Lesion found in Proximal Circumflex. Pre Stenosis: 30 Pre SHANELL Flow: tsites 01:20 PM Circumflex, Obtuse Marginal, Left Posterior Descending, and Left Posterolateral Coronary Arteries with 30 % stenosis. If graft is supplying this area, 0 % stenosis tsites 01:21 PM RCA angiography performed in multiple views. tsites 01:21 PM Recorded Pressure: Ao, HR=67, Condition=Condition 1 (Aorta) Ao 113/89/100 01:21 PM HR=66 bpm, QAEU=577/83 mmhg, SpO2=98.0 %, Resp=22 B/min 01:21 PM wire reinserted catheter removed tsites : PM 5Fr Pigtail catheter inserted over the wire [facility] tsites : PM Catheter crossed the aortic valve and was selectively placed in the left ventricle. Pressures recorded on pullback for left heart catheterization. tsites 01:22 PM Bolus angiogram of left Ventricle complete: 10 ml/sec for a total of 20 mls tsites :23 PM Recorded Pressure: LV, HR=66, Condition=Condition 1 (Left Ventricle) LV 124/-2/16 01:23 PM wire reinserted catheter removed tsites 01:24 PM Recorded Pressure: LV, Ao, HR=67, Condition=Condition 1 (Left Ventricle) LV 111/4/34, (Aorta) Ao 121/75/97 01:24 PM Inflation device was opened. tsites 01: PM Sheath exchanged for a 6 Fr 11 cm Cordis Jo sheath [id number] tsites : PM HR=62 bpm, JANP=105/79 mmhg, MkR4=178.0 %, Resp=18 B/min 01:26 PM 6Fr JL3.5 [place] Bright-Tip guide catheter was used to cannulate the PCI vessel successfully. reused? No tsites :27 PM ACT drawn tsites :28 PM .014 [place] 150cm guide wire across target lesion- successful. reused? No tsites :29 PM At 13:29 the ACT was 131 seconds. tsites :29 PM Time: 13:29 Heparin 3000 units Intravenous Given by Bebo Toussaint RN ts:30 PM Time: 13:30 Nitroglycerin 200 mcg Intracoronary Given by Kennedy Montero MD tsites :31 PM Asist FFR Catheter advanced to target lesion. tsites :31 PM Time: 13:31 Versed 1 mg Intravenous Given by Bebo Toussaint RN :32 PM Time: 13:32 90mg Adenosine in 90 ml 0.9 NS 714 mcg Intravenous Given by Bebo Toussaint RN Archer pump tsites 01:32 PM HR=57 bpm, OAVR=219/73 mmhg, SpO2=99.0 %, Resp=17 B/min 01:33 PM Time: 13:18 Patient comfortable and pain free: Yes tsites 01:33 PM Time: 13:18LOC: 4 = Oriented but drowsy tsites 01:34 PM Recorded Pressure: Ao, RA, HR=74, Condition=Condition 1 (Aorta) Ao 102/78/90, (Right Atrium) RA 103/105/89 01:35 PM Time: 13:35 Adenosine Dc'd Given by Bebo Toussaint RN tsites 01:35 PM Flow Wire/Catheter removed intact tsites 01:35 PM FFR Measurement: 0.96 tsites 01:36 PM Flow Wire/Catheter removed intact tsites 01:36 PM wire reinserted catheter removed tsites 01:36 PM HR=75 bpm, FJDM=705/76 mmhg, SpO2=98 %, Resp=21 B/min 01:36 PM Bolus angiogram of right Femoral complete: 2q ml/sec for a total of 4 mls tsites 01:37 PM Coronary Dominance: right tsites 01:37 PM Procedure completed at 13:37 08/30/2018 tsites 01:37 PM Did you address SHANELL flow and Dominance? Yes tsites 01:38 PM Sign out completed: Radiation Dose 191 mGy, 19.7 cGy/cm2 Fluoro Time:3.8 mins Isovue 370 - 200ml contrast 86 ml given by Kennedy Montero MD, [facility]. Complications: None. The patient was discharged out of the rn labor and delivery in stable condition. Cardiac Rehab Consult needed: NoConfirmed administered medications: Yes tsites 01:38 PM Isovue 370 - 200ml,1 Bottle(s) used. tsites 01:38 PM Arterial sheath pulled, Mynx closure device used and was Successful S/N. tsites 01:38 PM Estimated Blood Loss: minimal tsites 01:39 PM Post ECG NSR tsites 01:39 PM Post Blood Pressure 113/76 tsites 01:39 PM 13:39 Post Pulses Bilateral DP & PT 2+ tsites 01:39 PM Information taught Cardiac Cath and Mynx tsites 01:39 PM Education needs Procedure, Plan of Care, and Responsibilities of Patient in Care tsites 01:40 PM Learning barriers :None tsites 01:40 PM Education Methods Verbal tsites 01:40 PM Education evaluation Able to repeat information tsites 01:40 PM Site status No bleeding/hematoma - Rt Groin as reported by Jaspreet Washington RT (R) at 13:40 tsites 01:40 PM Opsite applied tsites 01:40 PM Delay to floor No tsites 01:40 PM Patient out of room: 13:40 tsites 01:41 PM Family placed in consult room. tsites 01:41 PM HR=59 bpm, MXGZ=401/76 mmhg, SpO2=99 %, Resp=24 B/min 01:51 PM Report given to noris PALMA Pt taken to 2s Room #8. 13:50 tsites Complications Complication None Hemodynamics Pressures Site Systolic/A Wave Diastolic/V Wave Mean AO 97 65 81 AO 113 89 100 LV 124 -2 16 LV 111 4 34 AO 121 75 97 AO 102 78 90 RA 103 105 89 Post Procedure Information Blood Pressure: 113/76 mmHg Rhythm: NSR Post procedural instructions were given Closure Device Time Device Success/Fail 08/30/2018 1:43:00 PM MynxGrip Successful Site Checks Time Location Status Staff Sheath In? Note 01:40 PM Rt Groin No bleeding/hematoma Jaspreet Washington RT (R) Pulses Time Site Pre-Procedure Post-Procedure Note Bilateral DP 2+ Bilateral radial 2+ 1:39:00 PM Bilateral DP & PT 2+ Updated by Jane Nguyễn RT (R) on 08/30/2018 1:51:48 PM Jane Nguyễn RT electronically signed on 08/30/2018 1:52:16 PM with status of Final
--- NOTE | 2018-08-30 14:00 | Event Note ---
Date of Encounter: 08/30/18 Time of Encounter: 14:00 - Cardiology Event Note Per discussion with Dr. Montero, [facility] completed and no significant lesions warranting intervention with FFR of circ showing no significant disease. Recs for Plavix for 1 year d/t trop. Cardiology signoff, reconsult as needed, follow-up arranged. Discussed with Dr. Gerry Fitzgerald.
[2018-08-30] MEDS ORDERED: OXYCODONE Oral CONC 10 MG/0.5 ML ORAL.SYG SL ONE ×2 (15:03→16:15)
[2018-08-30 15:36] VITALS: BP 124/89
--- NOTE | 2018-08-30 15:43 | Internal Med Progress Note ---
Hospitalist Progress Note - Encounter Date of Encounter: 08/30/18 - Exam Vitals: Temp Pulse Resp BP Pulse Ox 97.7 F 56 18 124/89 99 08/30/18 15:32 08/30/18 15:32 08/30/18 15:32 08/30/18 15:32 08/30/18 15:32 - Assessment and Plan (1) COPD (chronic obstructive pulmonary disease) Current Visit: No Status: Chronic (2) Chest pain Current Visit: No Status: Acute (3) HTN (hypertension) Current Visit: No Status: Acute (4) Seizure Current Visit: No Status: Acute (5) Elevated troponin I level Current Visit: No Status: Acute (6) Anxiety Current Visit: Yes Status: Acute - Time Spent with Patient Total time spent is greater than 50% in coordination of care (as documented) at patient's floor/unit and/or counseling patient: Internal Medicine: Result - Labs CBC & Chem 7: 08/30/18 11:43 Labs: BMP 08/30/18 11:43 Sodium 140 Potassium 4.0 Chloride 110 H Carbon Dioxide 23 BUN 11 Creatinine 0.56 L Glucose 110 H Calcium 9.1 Cardiac Enzymes 08/30/18 08/30/18 Range/Units 04:03 10:18 Troponin I 0.17 H* 0.21 H* (< 0.04) ng/mL Liver Function 08/30/18 Range/Units 11:43 Total Bilirubin 0.7 (0.3-1.0) mg/dL AST 59 H (13-39) Units/L ALT 68 H (7-52) Units/L Alkaline Phosphatase 110 H (34-104) Units/L Albumin 4.0 (3.5-5.7) g/dL - Impressions Impressions Echocardiogram Limited Views 08/29/18 14:30 Impressions: LVEF 60%. Normal LV chamber size, wall thickness and systolic function. No segmental dysfunction. Left Ventricular Wall Motion: Rest Echo Findings All wall segments showed normal motion. Findings: Study Quality * Technically adequate exam. ECG Findings * Normal sinus rhythm. Left Ventricle * LVEF 60%. * Normal LV chamber size, wall thickness and systolic function. * No segmental dysfunction. Left Atrium * Normal left atrial size. Right Atrium * Normal right atrial size. Interatrial Septum * No evidence of PFO with agitated saline contrast. Head CT 08/29/18 17:16 IMPRESSION: No acute intracranial abnormality. D/ / Bryan Levine MD / Bryan Levine MD Interpreting Provider: Bryan Levine MD Consult Discharge Plan - Plan Referrals: Mima Flores CNP [Primary Care Provider] - (1) COPD (chronic obstructive pulmonary disease) Qualifiers: (2) Chest pain Qualifiers: Qualified Code(s): R07.9 - Chest pain, unspecified (3) HTN (hypertension) Qualifiers: Hypertension type: essential hypertension Qualified Code(s): I10 - Essential (primary) hypertension
--- NOTE | 2018-08-30 16:35 | Discharge Summary ---
- NOTES TO OUTPATIENT PROVIDER Notes to Outpatient Provider: Ms. Marrufo was admitted on 08/29/18 for chest pain. She was found to have elevated troponins with no ischemic changes on EKG. Underwent LHC which revealed no lesions warranting intervention. Echocardiogram was grossly normal. Cardiology recommended Plavix on discharge for 1 year. She was also given scripts for Metoprolol, Lipitor, and prn Nitroglycerin. Recommend follow up with PCP in 3-5 days. Orders not resulted at time of discharge: Pending orders 08/29/18 11:57 Respiratory Infection Panel [MOLMIC] Routine 08/29/18 17:07 Viral Culture,Respiratory [RM] Routine 08/29/18 17:40 Von Willebrand Panel Routine 08/30/18 11:21 CL Cardiac Catheterization [CL] Routine Date of Encounter: 08/30/18 Time of Encounter: 09:00 - Discharge Diagnosis (1) Chest pain Priority: Primary Status: Acute Assessment and Plan: EKG without acute ischemic changes. Troponins elevated but adynamic at 0.21 Underwent LHC with no interventions. Cardiology recommended Plavix for 1 year Given prescriptions for Plavix, Lipitor, metoprolol, and prn Nitro Qualifiers: Qualified Code(s): R07.9 - Chest pain, unspecified (2) COPD (chronic obstructive pulmonary disease) Priority: Secondary Status: Chronic Assessment and Plan: Continue home medications Qualifiers: COPD type: unspecified COPD Qualified Code(s): J44.9 - Chronic obstructive pulmonary disease, unspecified (3) HTN (hypertension) Priority: Secondary Status: Acute Assessment and Plan: Continue home medications. Qualifiers: Hypertension type: essential hypertension Qualified Code(s): I10 - Essential (primary) hypertension (4) Seizure Priority: Secondary Status: Acute Assessment and Plan: Continue home Keppra (5) Elevated troponin I level Priority: Secondary Status: Acute Assessment and Plan: As above (6) Anxiety Priority: Secondary Status: Acute Assessment and Plan: continue home medications. Hospital course: Ms. Marrufo is a 48 year old female with PMH of COPD, HTN, seizure disorder, anxiety, depression, and polysubstance abuse. She was admitted on 08/29/18 for chest pain. She was found to have elevated troponins with no ischemic changes on EKG. She underwent LHC on 08/30 which revealed no lesions warranting intervention. Echocardiogram was grossly normal with LVEF 60% and normal LV chamber wall size, thickness, and function. Cardiology recommended Plavix on discharge for 1 year. She was also given scripts for Metoprolol, Lipitor, and prn Nitroglycerin. Recommend follow up with PCP in 3-5 days. Discharge discussed with: patient, family, nurse, risk management consultant - Time Spent with Patient Total time spent providing and/or coordinating discharge services: - Discharge Medications Prescriptions: Nitroglycerin 0.4 mg SL Q5MIN PRN 30 Days #20 tab.subl PRN Reason: Chest Pain Atorvastatin [Lipitor] 40 mg PO HS 30 Days #30 tablet Clopidogrel [Plavix] 75 mg PO DAILY 30 Days #30 tablet Metoprolol XL (24 HR) Succ [Toprol Xl] 12.5 mg PO DAILY 30 Days #15 tab.er.24h Home Medications: Albuterol Sulfate [Proair Hfa] 2 puff IH Q4-6H PRN 12/28/17 [History] Fluticasone/Vilanterol [Breo Ellipta 100-25 Mcg INH] 1 puff IH QPM 12/28/17 [History] LevETIRAcetam [Keppra] 1,000 mg PO HS 12/28/17 [History] LevETIRAcetam [Keppra] 500 mg PO QAM 12/28/17 [History] Lisinopril [Zestril] 10 mg PO DAILY 12/28/17 [History] diazePAM [Valium] 5 mg PO TID PRN 12/28/17 [History] Diltiazem CD (24hr) [Cardizem CD] 120 mg PO DAILY 02/14/18 [History] Aspirin [Lo-Dose Aspirin EC] 81 mg PO DAILY 08/29/18 [History] Albuterol Neb [Proventil Neb] 2.5 mg IH Q8H PRN 08/30/18 [History] Atorvastatin [Lipitor] 40 mg PO HS 30 Days #30 tablet 08/30/18 [Rx] Cetirizine HCl 10 mg PO DAILY 08/30/18 [History] Clopidogrel [Plavix] 75 mg PO DAILY 30 Days #30 tablet 08/30/18 [Rx] Esomeprazole Magnesium [Nexium] 40 mg PO DAILY 08/30/18 [History] Metoprolol XL (24 HR) Succ [Toprol Xl] 12.5 mg PO DAILY 30 Days #15 tab.er.24h 08/30/18 [Rx] Nitroglycerin 0.4 mg SL Q5MIN PRN 30 Days #20 tab.subl 08/30/18 [Rx] Ropinirole HCl 0.25 mg PO HS 08/30/18 [History] Sertraline [Zoloft] 50 mg PO DAILY 08/30/18 [History] Tiotropium [place] [Spiriva Respimat] 2 puff IH DAILY 08/30/18 [History] Allergies/Adverse Reactions: Allergy/AdvReac Type Severity Reaction Status Date / Time Cyclobenzaprine Allergy Swelling Verified 08/29/18 06:07 [From Flexeril] of Lip/Tongue/Throat Date of admission: 08/29/18 19:09 Primary care physician: Mima Flores Consults: 08/29/18 11:58 Consult to Cardiology [CONS] Routine Comment: Consulting Provider: Cardiology Leia Reason for Consult: chest pain, elevated troponin Call Completed: Yes Discharging clinician: Israel Castillo Constitutional Vitals: Temp Pulse Resp BP Pulse Ox 97.7 F 56 18 124/89 99 08/30/18 15:32 08/30/18 15:32 08/30/18 15:32 08/30/18 15:32 08/30/18 15:32 General appearance: Present: cooperative, mild distress, A&O X 3, answers questions appropriately Exam: General: well developed, well nourished female in mild distress due to pain Head: normocephalic and atraumatic Eyes: PERRL, EOMI, sclera anicteric, conjunctiva pink Neck: supple, trachea midline Lungs: CTA bilaterally. non-labored breathing. no wheezes, rales, or rhonchi Heart: RRR +s1 +s2 No murmurs, clicks, or rubs GI: abdomen soft, non-tender, non-distended. normoactive bowel sounds Extremities: warm, peripheral pulses palpable and symmetrical. no edema or cyanosis. Neuro: A&Ox3. no focal deficits. no speech difficulty or abnormality Skin: warm, dry, intact. dressing in place over cath site - Patient Status Disposition: Home, Self-Care Condition: Fair Functional capacity at discharge: independent ambulation Overall status at discharge: patient is progressing back to baseline - Discharge Instructions Follow Up With: Mima Flores CNP [Primary Care Provider] - 09/06/18 10:30 am - Diet and Activity Activity: increase activity as tolerated, resume usual activities as tolerated Diet: low fat, low cholesterol, low salt diet
[2018-08-30] MEDS ORDERED: Adenosine 90 MG/30 ML MLS IV ONE (18:49)
== END 2018-08-30 18:50 | disposition home or self-care (01) | DRG 287 ==
LOC: 2SOUTHHOLD → SUATTDRO 19:09 → 2ANU 08-30 15:27
PROVIDERS: ADMIT Internal Medicine; ATTEND Internal Medicine

== ENCOUNTER 2019-07-29 18:19 | Observation (INO) ==
[2019-07-29] MEDS ORDERED: Naloxone 0.4 MG/ML INJ IVP PRN (21:48)
[2019-07-29] MEDS ORDERED: Ondansetron 4 MG/2 ML VIAL IVP PRN (22:27)
[2019-07-29] MEDS ORDERED: Loratadine 10 MG TABLET PO PRN (23:22)
[2019-07-29] MEDS ORDERED: Nitroglycerin 0.4 MG TAB.SUBL SL PRN (23:22)
[2019-07-29] MEDS ORDERED: *HR* Heparin 5,000 UNIT/ML VIAL IVP ONE ×2 (23:29→23:37)
[2019-07-29] MEDS ORDERED: *HR* Heparin 5,000 UNIT/ML VIAL IVP PRN ×4 (23:29→23:37)
[2019-07-29] MEDS ORDERED: Heparin 25,000 UNIT/250 ML D5W 25,000 UNIT/250 ML IV.SOLN IVC SCH (23:30)
[2019-07-29] MEDS ORDERED: Albuterol 2.5 MG/3 ML NEBULIZER ONE (23:32)
[2019-07-29] MEDS: Albuterol 2.5 MG/3 ML NEBULIZER IH SCH (23:37)
[2019-07-30 00:48] LABS: Basophils % 0.4 %; Eosinophils # 0.1 K/mcL (0.0-0.6); Eosinophils % 0.9 %; Hematocrit 38.2 % (35.3-44.9); Hemoglobin 13.3 g/dL (11.5-15.4); Immature Granulocytes % 0.2 % (0-4); Lymphocytes # 0.4 K/mcL (0.6-4.6); Lymphocytes % 4.3 %; Mean Corpuscular HGB Conc 34.8 g/dL (31.6-35.5); Mean Corpuscular Hemoglobin 31.9 pg (28.0-33.3); Mean Corpuscular Volume 91.6 fL (83.0-100.0); Mean Platelet Volume 9.8 fL (9.4-12.4); Monocytes # 0.4 K/mcL (0.0-1.3); Monocytes % 4.1 %; Platelet Count 223 K/mcL (140-400); Red Blood Count 4.17 M/mcL (3.82-4.97); Red Cell Distribution Width 11.9 % (11.5-14.5); Segmented Neutrophils % 90.1 %
[2019-07-30 00:54] LABS: Heparin anti-factor XA UFH 0.52 IU/mL (0.30-0.70)
[2019-07-30 00:55] LABS: Prothrombin Time 11.6 Seconds (9.4-12.1)
[2019-07-30 01:03] LABS: BUN/Creatinine Ratio 13 (6-26); Blood Urea Nitrogen 10 mg/dL (6-20); Calcium 8.7 mg/dL (8.6-10.3); Carbon Dioxide 24 mEq/L (23-29); Chloride 109 mEq/L (98-107); Chol/HDL Ratio 2.2 (0-4.9); Cholesterol 97 mg/dL (< 200); Glucose 108 mg/dL (70-105); HDL Cholesterol 45 mg/dL (40-59); LDL Cholesterol,Calculated 40 mg/dL (0-99); Magnesium 1.7 mg/dL (1.6-2.6); Osmolality,Calculated 290 (280-300); Potassium 3.6 mEq/L (3.5-5.1); Sodium 140 mEq/L (136-145); Triglycerides 59 mg/dL (< 150); eGFR For African Americans > 60 (> 60); eGFR For Non-African Americans > 60 (> 60)
[2019-07-30] MEDS: Heparin 25,000 UNIT/250 ML D5W 25,000 UNIT/250 ML IV.SOLN IVC SCH ×2 (01:35→23:52)
[2019-07-30] MEDS: Albuterol 2.5 MG/3 ML NEBULIZER IH SCH (03:57)
[2019-07-30] MEDS ORDERED: Albuterol 2.5 MG/3 ML NEBULIZER IH PRN (04:35)
[2019-07-30] MEDS: cefTRIAXone 1,000 MG in Water for inj. (sterile) 10 ML IVP SCH (08:19)
[2019-07-30] MEDS: levETIRAcetam 250 MG TABLET PO SCH ×2 (08:19→20:38)
[2019-07-30] MEDS ORDERED: Diltiazem CD (24hr) 120 MG CAPSULE PO SCH (09:00)
[2019-07-30] MEDS: Tiotropium 18 MCG inhalation IH SCH (10:18)
[2019-07-30] MEDS: Budesonide/Formoterol 80/4.5 1 PUFF INH IH SCH (10:18)
[2019-07-30] MEDS: Acetaminophen 325 MG TABLET PO PRN ×2 (10:30→22:31)
[2019-07-30] MEDS: diazePAM 5 MG TABLET PO PRN (18:20)
[2019-07-30 18:24] LABS: Bilirubin,Urine Small (Negative); Blood,Urine Negative (Negative); Clarity,Urine Cloudy (Clear); Glucose,Urine (UA) Normal (Normal); Ketones,Urine Negative (Negative); Leukocyte Esterase,Urine Small (Negative); Nitrite,Urine Negative (Negative); Protein,Urine Trace mg/dL (Neg-Trace); Specific Gravity,Urine > 1.030 (1.010-1.025); Urobilinogen,Urine Normal (Normal)
[2019-07-30 18:27] LABS: Bacteria,Urine Few per hpf (None-Few); RBC,Urine 0-3 per hpf (0-3); Squamous Epithelial Cell,Urine Many per lpf (None-Few); WBC,Urine 30-50 per hpf (0-3)
[2019-07-30 18:28] LABS: Color,Urine Amber (Yellow)
[2019-07-30 18:40] LABS: Hyaline Casts,Urine None Seen per lpf (None-Few); Mucus,Urine Few per lpf (Few)
[2019-07-30] MEDS ORDERED: LEVETIRACETAM 500 MG PO SCH (21:00)
[2019-07-31 06:30] LABS: Hematocrit 38.1 % (35.3-44.9); Hemoglobin 13.5 g/dL (11.5-15.4); Mean Corpuscular HGB Conc 35.4 g/dL (31.6-35.5); Mean Corpuscular Volume 90.3 fL (83.0-100.0); Platelet Count 213 K/mcL (140-400); Red Blood Count 4.22 M/mcL (3.82-4.97); White Blood Count 3.5 K/mcL (4.3-11.1)
[2019-07-31 06:50] LABS: BUN/Creatinine Ratio 22 (6-26); Blood Urea Nitrogen 16 mg/dL (6-20); Calcium 8.7 mg/dL (8.6-10.3); Carbon Dioxide 26 mEq/L (23-29); Chloride 108 mEq/L (98-107); Glucose 110 mg/dL (70-105); Osmolality,Calculated 298 (280-300); Sodium 143 mEq/L (136-145); eGFR For African Americans > 60 (> 60); eGFR For Non-African Americans > 60 (> 60)
[2019-07-31 07:04] VITALS: BP 111/78
[2019-07-31] MEDS: Budesonide/Formoterol 80/4.5 1 PUFF INH IH SCH (08:20)
[2019-07-31] MEDS: Tiotropium 18 MCG inhalation IH SCH (08:20)
[2019-07-31] MEDS: cefTRIAXone 1,000 MG in Water for inj. (sterile) 10 ML IVP SCH (08:48)
[2019-07-31] MEDS: diazePAM 5 MG TABLET PO PRN (08:48)
[2019-07-31] MEDS: levETIRAcetam 250 MG TABLET PO SCH (08:48)
[2019-07-31] MEDS ORDERED: amLODIPine 5 MG TABLET PO SCH (09:00)
[2019-07-31] MEDS ORDERED: Metoprolol XL (24 HR) Succ 25 MG TAB.ER.24H PO SCH (09:00)
== END 2019-07-31 10:15 | disposition home or self-care (01) ==
LOC: 3BNU
PROVIDERS: ADMIT Family Medicine; ATTEND Family Medicine

== ENCOUNTER 2019-12-10 18:32 | Observation (INO) ==
[2019-12-11] MEDS ORDERED: Naloxone 0.4 MG/ML INJ IVP PRN (00:24)
[2019-12-11] MEDS ORDERED: Ondansetron ODT 4 MG TAB.RAPDIS SL PRN (00:24)
[2019-12-11] MEDS ORDERED: Nitroglycerin 0.4 MG TAB.SUBL SL PRN (00:28)
[2019-12-11] MEDS ORDERED: Albuterol 2.5 MG/3 ML NEBULIZER IH PRN (00:28)
[2019-12-11] MEDS ORDERED: 0.9 % Sodium Chloride 1,000 ML IVC SCH (00:30)
[2019-12-11] MEDS ORDERED: Acetaminophen IV 1,000 MG/100 ML INFUS..BTL IVPB ONE (00:44)
[2019-12-11 02:27] LABS: Hematocrit 39.1 % (35.3-44.9); Hemoglobin 13.5 g/dL (11.5-15.4); Mean Corpuscular HGB Conc 34.5 g/dL (31.6-35.5); Mean Corpuscular Hemoglobin 31.3 pg (28.0-33.3); Mean Corpuscular Volume 90.7 fL (83.0-100.0); Mean Platelet Volume 9.7 fL (9.4-12.4); Platelet Count 261 K/mcL (140-400); Red Blood Count 4.31 M/mcL (3.82-4.97); Red Cell Distribution Width 12.3 % (11.5-14.5); White Blood Count 5.8 K/mcL (4.3-11.1)
[2019-12-11 02:31] LABS: Prothrombin Time 11.4 Seconds (9.4-12.1)
[2019-12-11 02:46] LABS: Alanine Aminotransferase 24 Units/L (7-52); Albumin 4.1 g/dL (3.5-5.7); Albumin/Globulin Ratio 1.5 (1.1-2.2); Alkaline Phosphatase 93 Units/L (34-104); Aspartate Amino Transferase 19 Units/L (13-39); BUN/Creatinine Ratio 22 (6-26); Bilirubin,Total 0.8 mg/dL (0.3-1.0); Blood Urea Nitrogen 15 mg/dL (6-20); Calcium 9.5 mg/dL (8.6-10.3); Carbon Dioxide 24 mEq/L (23-29); Chloride 103 mEq/L (98-107); Globulin 2.7 g/dL (2.4-3.5); Glucose 91 mg/dL (70-105); Osmolality,Calculated 284 (280-300); Potassium 3.7 mEq/L (3.5-5.1); Sodium 137 mEq/L (136-145); Total Protein 6.8 g/dL (6.4-8.9); eGFR For African Americans > 60 (> 60); eGFR For Non-African Americans > 60 (> 60)
[2019-12-11 02:49] LABS: Chol/HDL Ratio 3.2 (0-4.9)
[2019-12-11] MEDS ORDERED: *HR* Heparin 5,000 UNIT/ML VIAL IVP ONE (02:59)
[2019-12-11] MEDS ORDERED: *HR* Heparin 5,000 UNIT/ML VIAL IVP PRN ×2 (02:59)
[2019-12-11] MEDS ORDERED: Heparin 25,000 UNIT/250 ML D5W 25,000 UNIT/250 ML IV.SOLN IVC SCH (03:00)
[2019-12-11 06:39] LABS: Bilirubin,Urine Negative (Negative); Blood,Urine Negative (Negative); Clarity,Urine Clear (Clear); Color,Urine Yellow (Yellow); Glucose,Urine (UA) Normal (Normal); Ketones,Urine Negative (Negative); Leukocyte Esterase,Urine Negative (Negative); Nitrite,Urine Negative (Negative); PH,Urine 5.5 pH Units (5.0-8.0); Protein,Urine Negative (Neg-Trace); Specific Gravity,Urine 1.021 (1.010-1.025); Urobilinogen,Urine Normal (Normal)
[2019-12-11] MEDS ORDERED: LEVETIRACETAM 500 MG PO SCH (09:00)
[2019-12-11] MEDS ORDERED: DilTIAZem CD (24hr) 120 MG CAP.ER.24H PO SCH (09:00)
[2019-12-11] MEDS: levETIRAcetam 250 MG TABLET PO SCH ×2 (09:34→20:42)
[2019-12-11] MEDS: Metoprolol XL (24 HR) Succ 25 MG TAB.ER.24H PO SCH (09:34)
[2019-12-11] MEDS: diazePAM 5 MG TABLET PO SCH ×3 (09:34→20:41)
[2019-12-11] MEDS ORDERED: tiZANidine 4 MG TABLET PO PRN (12:57)
[2019-12-11] MEDS ORDERED: *HR* HYDROcodone/Acet 5/325 mg TABLET PO PRN (14:40)
[2019-12-11] MEDS ORDERED: Acetaminophen 325 MG TABLET PO PRN (14:40)
[2019-12-11] MEDS ORDERED: Perflutren Lipid Microsphere 1.3 ML in 0.9 % Sodium Chloride 8.7 ML IVP ONE (17:37)
[2019-12-12] MEDS ORDERED: *HR* Heparin 5,000 UNIT/ML VIAL SQ SCH (00:28)
[2019-12-12 07:30] VITALS: BP 112/70
[2019-12-12] MEDS ORDERED: lisinopriL 20 MG TABLET PO SCH (09:00)
[2019-12-12] MEDS ORDERED: DilTIAZem CD (24hr) 120 MG CAP.ER.24H PO SCH (09:00)
[2019-12-12] MEDS: Metoprolol XL (24 HR) Succ 25 MG TAB.ER.24H PO SCH (09:01)
[2019-12-12] MEDS: diazePAM 5 MG TABLET PO SCH (09:02)
[2019-12-12] MEDS: levETIRAcetam 250 MG TABLET PO SCH (09:02)
[2019-12-12] MEDS ORDERED: Budesonide/Formoterol 80/4.5 1 PUFF INH IH SCH (10:00)
[2019-12-13] MEDS ORDERED: *HR* Enoxaparin 40 MG/0.4 ML SYRINGE SQ SCH (06:00)
== END 2019-12-12 10:48 | disposition home or self-care (01) ==
LOC: 3BNU → SUATTDRO 19:53
PROVIDERS: ADMIT Internal Medicine; ATTEND Internal Medicine

== ENCOUNTER 2020-03-24 13:52 | Observation (INO) ==
[2020-03-24] MEDS ORDERED: Ondansetron 4 MG/2 ML VIAL IVP PRN (16:14)
[2020-03-24] MEDS ORDERED: Naloxone 0.4 MG/ML INJ IVP PRN (16:14)
[2020-03-24] MEDS: *HR* Heparin 5,000 UNIT/ML VIAL SQ SCH (17:34)
[2020-03-24] MEDS: Nitroglycerin 0.4 MG TAB.SUBL SL PRN ×2 (17:34→17:39)
[2020-03-24] MEDS: diazePAM 5 MG TABLET PO SCH (20:19)
[2020-03-24] MEDS: levETIRAcetam 250 MG TABLET PO SCH (20:20)
[2020-03-24] MEDS: Budesonide/Formoterol 80/4.5 1 PUFF INH IH SCH (21:34)
[2020-03-25 04:55] LABS: Hematocrit 39.8 % (35.3-44.9); Hemoglobin 13.6 g/dL (11.5-15.4); Mean Corpuscular HGB Conc 34.2 g/dL (31.6-35.5); Mean Corpuscular Hemoglobin 31.5 pg (28.0-33.3); Mean Corpuscular Volume 92.1 fL (83.0-100.0); Mean Platelet Volume 9.8 fL (9.4-12.4); Platelet Count 225 K/mcL (140-400); Red Blood Count 4.32 M/mcL (3.82-4.97); Red Cell Distribution Width 11.7 % (11.5-14.5); White Blood Count 4.4 K/mcL (4.3-11.1)
[2020-03-25 05:13] LABS: BUN/Creatinine Ratio 19 (6-26); Blood Urea Nitrogen 16 mg/dL (6-20); Carbon Dioxide 24 mEq/L (23-29); Chloride 108 mEq/L (98-107); Glucose 120 mg/dL (70-105); Magnesium 1.9 mg/dL (1.6-2.6); Osmolality,Calculated 294 (280-300); Potassium 3.8 mEq/L (3.5-5.1); Sodium 141 mEq/L (136-145); eGFR For African Americans > 60 (> 60); eGFR For Non-African Americans > 60 (> 60)
[2020-03-25] MEDS: *HR* Heparin 5,000 UNIT/ML VIAL SQ SCH ×2 (05:31→17:26)
[2020-03-25] MEDS: Budesonide/Formoterol 80/4.5 1 PUFF INH IH SCH ×2 (07:44→21:57)
[2020-03-25] MEDS: Tiotropium 18 MCG inhalation IH SCH (07:45)
[2020-03-25] MEDS ORDERED: Albuterol 2.5 MG/3 ML NEBULIZER IH PRN (08:59)
[2020-03-25] MEDS ORDERED: tiZANidine 4 MG TABLET PO PRN (08:59)
[2020-03-25] MEDS ORDERED: Perflutren Lipid Microsphere 1.3 ML in 0.9 % Sodium Chloride 8.7 ML IVP PRN (11:05)
[2020-03-25] MEDS: lisinopriL 10 MG TABLET PO SCH ×2 (11:24→20:21)
[2020-03-25] MEDS: diazePAM 5 MG TABLET PO SCH ×3 (11:24→20:22)
[2020-03-25] MEDS: Loratadine 10 MG TABLET PO SCH (11:24)
[2020-03-25] MEDS: Metoprolol XL (24 HR) Succ 25 MG TAB.ER.24H PO SCH (11:24)
[2020-03-25] MEDS: DilTIAZem CD (24hr) 120 MG CAP.ER.24H PO SCH (11:24)
[2020-03-25] MEDS: *HR* HYDROcodone/Acet 5/325 mg TABLET PO PRN ×2 (15:19→21:40)
[2020-03-25] MEDS: levETIRAcetam 250 MG TABLET PO SCH (20:22)
[2020-03-25] MEDS ORDERED: Melatonin 3 MG TABLET PO ONE (22:34)
[2020-03-26] MEDS: *HR* Heparin 5,000 UNIT/ML VIAL SQ SCH (05:18)
[2020-03-26] MEDS ORDERED: Regadenoson 0.4 MG/5 ML SYRINGE IVP ONE (06:02)
[2020-03-26] MEDS: Metoprolol XL (24 HR) Succ 25 MG TAB.ER.24H PO SCH (10:03)
[2020-03-26] MEDS: Loratadine 10 MG TABLET PO SCH (10:03)
[2020-03-26] MEDS: lisinopriL 10 MG TABLET PO SCH (10:04)
[2020-03-26] MEDS: DilTIAZem CD (24hr) 120 MG CAP.ER.24H PO SCH (10:04)
[2020-03-26] MEDS: *HR* HYDROcodone/Acet 5/325 mg TABLET PO PRN (10:04)
[2020-03-26] MEDS: diazePAM 5 MG TABLET PO SCH (10:06)
[2020-03-26] MEDS: Tiotropium 18 MCG inhalation IH SCH (10:14)
[2020-03-26] MEDS: Budesonide/Formoterol 80/4.5 1 PUFF INH IH SCH (10:15)
[2020-03-26 11:47] VITALS: BP 136/88
== END 2020-03-26 16:23 | disposition home or self-care (01) ==
LOC: 3BNU → SUATTDRO 15:21
PROVIDERS: ADMIT Family Medicine; ATTEND Nurse Practitioner Adult Health

== ENCOUNTER 2020-11-06 16:11 | Observation (INO) ==
[2020-11-06] MEDS ORDERED: Isovue-370 500 ML BOTTLE IVP ONE (16:50)
[2020-11-06] MEDS ORDERED: *HR* FentaNYL (PF) 100 MCG/2 ML VIAL IVP ONE ×2 (16:50→23:07)
[2020-11-06 17:33] LABS: Basophils % 0.6 %; Eosinophils # 0.1 K/mcL (0.0-0.6); Hematocrit 38.8 % (35.3-44.9); Hemoglobin 13.4 g/dL (11.5-15.4); Immature Granulocytes % 0.3 % (0-4); Lymphocytes % 28.2 %; Mean Corpuscular HGB Conc 34.5 g/dL (31.6-35.5); Mean Corpuscular Hemoglobin 31.8 pg (28.0-33.3); Mean Corpuscular Volume 91.9 fL (83.0-100.0); Mean Platelet Volume 9.9 fL (9.4-12.4); Monocytes # 0.5 K/mcL (0.0-1.3); Monocytes % 6.9 %; Neutrophils # 4.5 K/mcL (1.6-8.9); Platelet Count 231 K/mcL (140-400); Red Blood Count 4.22 M/mcL (3.82-4.97); Red Cell Distribution Width 12.3 % (11.5-14.5); White Blood Count 7.1 K/mcL (4.3-11.1)
[2020-11-06 18:17] LABS: Alanine Aminotransferase 12 Units/L (7-52); Albumin 4.2 g/dL (3.5-5.7); Albumin/Globulin Ratio 1.8 (1.1-2.2); Alkaline Phosphatase 106 Units/L (34-104); Aspartate Amino Transferase 15 Units/L (13-39); BUN/Creatinine Ratio 14 (6-26); Bilirubin,Total 0.5 mg/dL (0.3-1.0); Blood Urea Nitrogen 14 mg/dL (6-20); Calcium 9.3 mg/dL (8.6-10.3); Carbon Dioxide 21 mEq/L (23-29); Chloride 112 mEq/L (98-107); Globulin 2.3 g/dL (2.4-3.5); Glucose 106 mg/dL (70-105); Osmolality,Calculated 297 (280-300); Potassium 3.2 mEq/L (3.5-5.1); Sodium 143 mEq/L (136-145); Total Protein 6.5 g/dL (6.4-8.9); eGFR For African Americans > 60 (> 60); eGFR For Non-African Americans 57 (> 60)
[2020-11-06 18:18] LABS: Troponin I 0.16 ng/mL (< 0.04)
[2020-11-06] MEDS ORDERED: Potassium Chloride Elixir 20 MEQ/15 ML UDC PO ONE (18:20)
[2020-11-07] MEDS ORDERED: Acetaminophen 325 MG TABLET PO PRN (00:24)
[2020-11-07] MEDS ORDERED: Naloxone 0.4 MG/ML INJ IVP PRN (00:24)
[2020-11-07] MEDS ORDERED: Melatonin 3 MG TABLET PO PRN (00:24)
[2020-11-07] MEDS ORDERED: Ondansetron 4 MG/2 ML VIAL IVP PRN (00:24)
[2020-11-07] MEDS ORDERED: Aspirin Enteric Coated 325 MG Tablet PO ONE (00:28)
[2020-11-07] MEDS ORDERED: diazePAM 5 MG TABLET PO PRN (00:28)
[2020-11-07] MEDS ORDERED: tiZANidine 4 MG TABLET PO PRN (00:28)
[2020-11-07 01:08] LABS: Basophils % 0.7 %; Eosinophils # 0.1 K/mcL (0.0-0.6); Eosinophils % 1.6 %; Hematocrit 37.6 % (35.3-44.9); Hemoglobin 12.8 g/dL (11.5-15.4); Immature Granulocytes % 0.2 % (0-4); Lymphocytes # 1.9 K/mcL (0.6-4.6); Lymphocytes % 42.4 %; Mean Corpuscular Hemoglobin 30.9 pg (28.0-33.3); Mean Corpuscular Volume 90.8 fL (83.0-100.0); Mean Platelet Volume 9.7 fL (9.4-12.4); Monocytes # 0.4 K/mcL (0.0-1.3); Monocytes % 9.5 %; Neutrophils # 2.1 K/mcL (1.6-8.9); Platelet Count 226 K/mcL (140-400); Red Blood Count 4.14 M/mcL (3.82-4.97); Red Cell Distribution Width 12.6 % (11.5-14.5); Segmented Neutrophils % 45.6 %; White Blood Count 4.5 K/mcL (4.3-11.1)
[2020-11-07 01:16] LABS: INR 1.1; Prothrombin Time 12.5 Seconds (9.4-12.1)
[2020-11-07] MEDS ORDERED: levETIRAcetam 1,000 MG in 0.9 % Sodium Chloride 100 ML IVPB ONE (01:23)
[2020-11-07 01:28] LABS: BUN/Creatinine Ratio 14 (6-26); Blood Urea Nitrogen 11 mg/dL (6-20); Calcium 8.8 mg/dL (8.6-10.3); Carbon Dioxide 23 mEq/L (23-29); Chloride 110 mEq/L (98-107); Chol/HDL Ratio 4.5 (0-4.9); Cholesterol 171 mg/dL (< 200); Glucose 101 mg/dL (70-105); HDL Cholesterol 38 mg/dL (40-59); LDL Cholesterol,Calculated 105 mg/dL (< 100); Osmolality,Calculated 288 (280-300); Potassium 3.8 mEq/L (3.5-5.1); Sodium 139 mEq/L (136-145); Triglycerides 140 mg/dL (< 150); eGFR For African Americans > 60 (> 60); eGFR For Non-African Americans > 60 (> 60)
[2020-11-07] MEDS ORDERED: Perflutren Lipid Microsphere 1.3 ML in 0.9 % Sodium Chloride 8.7 ML IVP PRN (07:45)
[2020-11-07] MEDS: levETIRAcetam 250 MG TABLET PO SCH ×2 (07:57→22:10)
[2020-11-07] MEDS: DilTIAZem CD (24hr) 120 MG CAP.ER.24H PO SCH (07:57)
[2020-11-07] MEDS: Metoprolol XL (24 HR) Succ 25 MG TAB.ER.24H PO SCH (07:57)
[2020-11-07] MEDS: Loratadine 10 MG TABLET PO SCH (07:57)
[2020-11-07] MEDS: Tiotropium 10 INH DOSE IH SCH (10:19)
[2020-11-07] MEDS: *HR* OxyCODONE/APAP 5/325 TABLET PO PRN ×2 (13:56→22:11)
[2020-11-07] MEDS ORDERED: Budesonide/Formoterol 160/4.5 1 PUFF INH IH SCH (18:00)
[2020-11-07] MEDS: Budesonide/Formoterol 160/4.5 1 PUFF INH IH SCH (22:07)
[2020-11-07] MEDS: lisinopriL 10 MG TABLET PO SCH (22:10)
[2020-11-08] MEDS: *HR* OxyCODONE/APAP 5/325 TABLET PO PRN (05:38)
[2020-11-08] MEDS: Metoprolol XL (24 HR) Succ 25 MG TAB.ER.24H PO SCH (07:54)
[2020-11-08] MEDS: levETIRAcetam 250 MG TABLET PO SCH ×2 (07:54→21:13)
[2020-11-08] MEDS: lisinopriL 10 MG TABLET PO SCH ×2 (07:54→21:32)
[2020-11-08] MEDS: DilTIAZem CD (24hr) 120 MG CAP.ER.24H PO SCH (07:54)
[2020-11-08] MEDS: Loratadine 10 MG TABLET PO SCH (07:54)
[2020-11-08] MEDS: Budesonide/Formoterol 160/4.5 1 PUFF INH IH SCH (08:15)
[2020-11-08] MEDS: Tiotropium 10 INH DOSE IH SCH (08:15)
[2020-11-08] MEDS ORDERED: Morphine Sulfate 2 MG/ML SYRINGE IVP ONE ×2 (13:44→19:53)
[2020-11-08] MEDS ORDERED: Isosorbide MONOnitrate (24 HR) 30 MG TAB.ER.24H PO SCH (14:00)
[2020-11-08] MEDS ORDERED: Nitroglycerin 0.4 MG TAB.SUBL SL PRN (19:31)
[2020-11-08] MEDS ORDERED: 0.9 % Sodium Chloride 250 ML IVC ONE (19:53)
[2020-11-08] MEDS ORDERED: Metoprolol XL (24 HR) Succ 50 MG TAB.ER.24H PO ONE (21:00)
[2020-11-08 22:41] VITALS: BP 136/86
[2020-11-09] MEDS ORDERED: Nitroglycerin 0.4 MG TAB.SUBL SL PRN (07:00)
[2020-11-09] MEDS ORDERED: Isovue-370 500 ML BOTTLE IVP ONE (07:00)
[2020-11-09] MEDS ORDERED: *HR* Metoprolol 5 MG/5 ML VIAL IVP PRN (07:00)
== END 2020-11-08 23:08 | disposition left against medical advice (07) ==
LOC: EMEROOARM 16:11 → 3BNU 16:11 → SUATTDRO 23:07 → 3BNU 23:46
PROVIDERS: ADMIT Family Medicine; ATTEND Internal Medicine

== ENCOUNTER 2021-01-28 10:02 | Observation (INO) ==
[2021-01-28 11:09] LABS: Basophils % 0.2 %; Hematocrit 40.6 % (35.3-44.9); Hemoglobin 13.7 g/dL (11.5-15.4); Immature Granulocytes % 0.7 % (0-4); Lymphocytes # 1.3 K/mcL (0.6-4.6); Lymphocytes % 11.9 %; Mean Corpuscular HGB Conc 33.7 g/dL (31.6-35.5); Mean Corpuscular Hemoglobin 31.4 pg (28.0-33.3); Mean Corpuscular Volume 93.1 fL (83.0-100.0); Mean Platelet Volume 9.9 fL (9.4-12.4); Monocytes # 0.4 K/mcL (0.0-1.3); Monocytes % 3.3 %; Platelet Count 247 K/mcL (140-400); Red Blood Count 4.36 M/mcL (3.82-4.97); Red Cell Distribution Width 12.5 % (11.5-14.5); Segmented Neutrophils % 83.9 %; White Blood Count 10.7 K/mcL (4.3-11.1)
[2021-01-28 11:34] LABS: Troponin I 0.12 ng/mL (< 0.04)
[2021-01-28 11:38] LABS: BUN/Creatinine Ratio 18 (6-26); Blood Urea Nitrogen 13 mg/dL (6-20); Calcium 9.7 mg/dL (8.6-10.3); Carbon Dioxide 25 mEq/L (23-29); Chloride 108 mEq/L (98-107); Glucose 110 mg/dL (70-105); Osmolality,Calculated 297 (280-300); Potassium 3.7 mEq/L (3.5-5.1); Sodium 143 mEq/L (136-145); eGFR For African Americans > 60 (> 60); eGFR For Non-African Americans > 60 (> 60)
[2021-01-28] MEDS ORDERED: Melatonin 3 MG TABLET PO PRN (15:04)
[2021-01-28] MEDS ORDERED: Mag Hydrox/Al Hydrox/Simeth 30 ML UDC PO PRN (15:04)
[2021-01-28] MEDS ORDERED: Naloxone 0.4 MG/ML INJ IVP PRN (15:04)
[2021-01-28] MEDS ORDERED: MOM Conc 10 ML UD.LIQ PO PRN (15:04)
[2021-01-28] MEDS ORDERED: Ondansetron ODT 4 MG TAB.RAPDIS SL PRN (15:04)
[2021-01-28] MEDS ORDERED: Nitroglycerin 0.4 MG TAB.SUBL SL PRN (15:10)
[2021-01-28] MEDS ORDERED: Ketorolac 15 MG/ML VIAL IVP ONE (15:13)
[2021-01-28] MEDS ORDERED: Prochlorperazine 10 MG/2 ML VIAL IVP SCH (15:15)
[2021-01-28] MEDS: *HR* OxyCODONE Immed Rel 5 MG TABLET PO PRN (16:43)
[2021-01-28] MEDS: Isosorbide MONOnitrate (24 HR) 30 MG TAB.ER.24H PO SCH (16:43)
[2021-01-28] MEDS: levETIRAcetam 250 MG TABLET PO SCH (16:43)
[2021-01-28] MEDS ORDERED: Metoprolol XL (24 HR) Succ 50 MG TAB.ER.24H PO ONE (21:00)
[2021-01-28] MEDS ORDERED: Acetaminophen 325 MG TABLET PO PRN (22:05)
[2021-01-29 00:34] LABS: Hematocrit 35.2 % (35.3-44.9); Mean Corpuscular HGB Conc 34.1 g/dL (31.6-35.5); Mean Corpuscular Hemoglobin 31.7 pg (28.0-33.3); Mean Corpuscular Volume 93.1 fL (83.0-100.0); Mean Platelet Volume 10.2 fL (9.4-12.4); Platelet Count 214 K/mcL (140-400); Red Blood Count 3.78 M/mcL (3.82-4.97); Red Cell Distribution Width 12.5 % (11.5-14.5); White Blood Count 7.6 K/mcL (4.3-11.1)
[2021-01-29 00:53] LABS: Alanine Aminotransferase 8 Units/L (7-52); Albumin 3.7 g/dL (3.5-5.7); Albumin/Globulin Ratio 1.6 (1.1-2.2); Alkaline Phosphatase 80 Units/L (34-104); Aspartate Amino Transferase 8 Units/L (13-39); BUN/Creatinine Ratio 25 (6-26); Bilirubin,Total 0.3 mg/dL (0.3-1.0); Blood Urea Nitrogen 18 mg/dL (6-20); Calcium 8.6 mg/dL (8.6-10.3); Carbon Dioxide 24 mEq/L (23-29); Chloride 108 mEq/L (98-107); Chol/HDL Ratio 2.9 (0-4.9); Cholesterol 141 mg/dL (< 200); Globulin 2.3 g/dL (2.4-3.5); Glucose 111 mg/dL (70-105); HDL Cholesterol 48 mg/dL (40-59); LDL Cholesterol,Calculated 66 mg/dL (< 100); Osmolality,Calculated 297 (280-300); Potassium 3.7 mEq/L (3.5-5.1); Sodium 142 mEq/L (136-145); Triglycerides 135 mg/dL (< 150); eGFR For African Americans > 60 (> 60); eGFR For Non-African Americans > 60 (> 60)
[2021-01-29] MEDS ORDERED: *HR* Enoxaparin 40 MG/0.4 ML SYRINGE SQ SCH (06:00)
[2021-01-29] MEDS: levETIRAcetam 250 MG TABLET PO SCH (06:01)
[2021-01-29] MEDS ORDERED: Isovue-370 500 ML BOTTLE IVP ONE (08:46)
[2021-01-29] MEDS ORDERED: *HR* Metoprolol 5 MG/5 ML VIAL IVP PRN (08:46)
[2021-01-29] MEDS ORDERED: Metoprolol XL (24 HR) Succ 25 MG TAB.ER.24H PO SCH (09:00)
[2021-01-29] MEDS ORDERED: Aspirin 81 MG TAB.CHEW PO SCH (09:00)
[2021-01-29] MEDS: Isosorbide MONOnitrate (24 HR) 30 MG TAB.ER.24H PO SCH (10:08)
[2021-01-29] MEDS: *HR* OxyCODONE Immed Rel 5 MG TABLET PO PRN (10:08)
[2021-01-29] MEDS ORDERED: Ketorolac 15 MG/ML VIAL IVP ONE (12:17)
[2021-01-29] MEDS ORDERED: Prochlorperazine 10 MG/2 ML VIAL IVP SCH (12:30)
[2021-01-29 14:36] VITALS: BP 124/80
== END 2021-01-29 15:38 | disposition home or self-care (01) ==
LOC: EMEROOARM 10:02 → 3BNU 10:02
PROVIDERS: ADMIT Internal Medicine; ATTEND Internal Medicine

== ENCOUNTER 2021-05-19 17:25 | Observation (INO) ==
[2021-05-19] MEDS ORDERED: Ondansetron 4 MG/2 ML VIAL IVP ONE (17:56)
[2021-05-19] MEDS ORDERED: Morphine Sulfate 2 MG/ML SYRINGE IVP ONE (17:56)
[2021-05-19 18:56] LABS: Basophils % 0.4 %; Eosinophils # 0.1 K/mcL (0.0-0.6); Eosinophils % 1.5 %; Hematocrit 42.3 % (35.3-44.9); Hemoglobin 14.2 g/dL (11.5-15.4); Immature Granulocytes % 0.3 % (0-4); Lymphocytes # 2.8 K/mcL (0.6-4.6); Lymphocytes % 40.5 %; Mean Corpuscular HGB Conc 33.6 g/dL (31.6-35.5); Mean Corpuscular Hemoglobin 30.9 pg (28.0-33.3); Mean Platelet Volume 9.6 fL (9.4-12.4); Monocytes # 0.5 K/mcL (0.0-1.3); Monocytes % 6.8 %; Neutrophils # 3.4 K/mcL (1.6-8.9); Platelet Count 231 K/mcL (140-400); Red Cell Distribution Width 12.3 % (11.5-14.5); Segmented Neutrophils % 50.5 %; White Blood Count 6.8 K/mcL (4.3-11.1)
[2021-05-19 19:04] LABS: Prothrombin Time 10.6 Seconds (9.4-12.1)
[2021-05-19 19:06] LABS: Activated Partial Thrombo Time 29.5 Seconds (26.0-36.0)
[2021-05-19] MEDS ORDERED: Nitroglycerin 0.4 MG TAB.SUBL SL STA (19:14)
[2021-05-19 19:15] LABS: BUN/Creatinine Ratio 18 (6-26); Blood Urea Nitrogen 15 mg/dL (6-20); Calcium 9.3 mg/dL (8.6-10.3); Carbon Dioxide 24 mEq/L (23-29); Chloride 107 mEq/L (98-107); Glucose 123 mg/dL (70-105); Osmolality,Calculated 290 (280-300); Potassium 3.6 mEq/L (3.5-5.1); eGFR For African Americans > 60 (> 60); eGFR For Non-African Americans > 60 (> 60)
[2021-05-19 19:24] LABS: Troponin I 0.09 ng/mL (< 0.04)
[2021-05-19 19:28] LABS: Sodium 139 mEq/L (136-145)
[2021-05-19 19:51] LABS: Alanine Aminotransferase 15 Units/L (7-52); Albumin 4.2 g/dL (3.5-5.7); Albumin/Globulin Ratio 1.8 (1.1-2.2); Alkaline Phosphatase 92 Units/L (34-104); Aspartate Amino Transferase 15 Units/L (13-39); Bilirubin,Direct 0.1 mg/dL (0.0-0.2); Bilirubin,Indirect 0.3 mg/dL (0.0-1.0); Bilirubin,Total 0.4 mg/dL (0.3-1.0); Globulin 2.4 g/dL (2.4-3.5); Total Protein 6.6 g/dL (6.4-8.9)
[2021-05-19] MEDS ORDERED: *HR* Heparin 5,000 UNIT/ML VIAL IVP PRN ×2 (22:47)
[2021-05-19] MEDS ORDERED: *HR* Heparin 5,000 UNIT/ML VIAL IVP ONE (22:47)
[2021-05-19] MEDS ORDERED: Heparin 25,000UNIT/250ML 1/2NS 25,000 UNIT/250 ML IV.SOLN IVC SCH (23:00)
[2021-05-19 23:35] LABS: Amphetamine Screen,Urine Negative ng/mL (Cutoff=1000); Barbiturate Screen,Urine Negative ng/mL (Cutoff=200); Benzodiazepines Screen,Urine Positive ng/mL (Cutoff=200); Cannabinoid Screen,Urine Negative ng/mL (Cutoff = 50); Cocaine Screen,Urine Negative ng/mL (Cutoff= 300); Opiate Screen,Urine Positive ng/mL (Cutoff=300); Phencyclidine Screen,Urine Negative ng/mL (Cutoff=25)
[2021-05-20] MEDS ORDERED: Acetaminophen 325 MG TABLET PO PRN (01:21)
[2021-05-20] MEDS ORDERED: Naloxone 0.4 MG/ML INJ IVP PRN (01:21)
[2021-05-20] MEDS ORDERED: Ondansetron 4 MG/2 ML VIAL IVP PRN (01:21)
[2021-05-20] MEDS ORDERED: Melatonin 3 MG TABLET PO PRN (01:21)
[2021-05-20 02:14] LABS: Basophils % 0.5 %; Eosinophils # 0.1 K/mcL (0.0-0.6); Eosinophils % 1.8 %; Hematocrit 40.4 % (35.3-44.9); Hemoglobin 13.5 g/dL (11.5-15.4); Immature Granulocytes % 0.2 % (0-4); Lymphocytes # 2.6 K/mcL (0.6-4.6); Lymphocytes % 41.3 %; Mean Corpuscular HGB Conc 33.4 g/dL (31.6-35.5); Mean Corpuscular Hemoglobin 31.1 pg (28.0-33.3); Mean Corpuscular Volume 93.1 fL (83.0-100.0); Mean Platelet Volume 9.8 fL (9.4-12.4); Monocytes # 0.5 K/mcL (0.0-1.3); Monocytes % 7.5 %; Platelet Count 207 K/mcL (140-400); Red Blood Count 4.34 M/mcL (3.82-4.97); Red Cell Distribution Width 12.3 % (11.5-14.5); Segmented Neutrophils % 48.7 %; White Blood Count 6.2 K/mcL (4.3-11.1)
[2021-05-20 02:35] LABS: Troponin I 0.09 ng/mL (< 0.04)
[2021-05-20 02:43] LABS: BUN/Creatinine Ratio 19 (6-26); Blood Urea Nitrogen 14 mg/dL (6-20); Calcium 8.5 mg/dL (8.6-10.3); Carbon Dioxide 21 mEq/L (23-29); Chloride 108 mEq/L (98-107); Glucose 103 mg/dL (70-105); Magnesium 1.9 mg/dL (1.6-2.6); Osmolality,Calculated 289 (280-300); Phosphorous 4.6 mg/dL (2.7-4.5); Potassium 3.8 mEq/L (3.5-5.1); Sodium 139 mEq/L (136-145); eGFR For African Americans > 60 (> 60); eGFR For Non-African Americans > 60 (> 60)
[2021-05-20] MEDS: Morphine Sulfate 2 MG/ML SYRINGE IVP PRN ×5 (02:54→16:22)
[2021-05-20] MEDS ORDERED: diazePAM 5 MG TABLET PO PRN (07:09)
[2021-05-20] MEDS ORDERED: (Linaclotide [Linzess] 290 MCG Capsule) PO PRN (07:09)
[2021-05-20] MEDS ORDERED: lisinopriL 10 MG TABLET PO SCH (09:00)
[2021-05-20] MEDS ORDERED: DilTIAZem CD (24hr) 120 MG CAP.ER.24H PO SCH (09:00)
[2021-05-20] MEDS ORDERED: Gabapentin 100 MG CAPSULE PO SCH (09:00)
[2021-05-20] MEDS ORDERED: Metoprolol XL (24 HR) Succ 25 MG TAB.ER.24H PO SCH (09:00)
[2021-05-20] MEDS ORDERED: Ranolazine 500 MG TAB.ER.12H PO SCH (13:15)
[2021-05-20 15:18] VITALS: BP 113/81; PULSE 75; TEMP 98; O2SAT 91
== END 2021-05-20 16:42 | disposition home or self-care (01) ==
LOC: 2ANU 17:25 → EMEROOARM 17:25 → SUATTDRO 23:35 → 2ANU 05-20 00:40
PROVIDERS: ADMIT Family Medicine; ATTEND Internal Medicine

== ENCOUNTER 2022-01-21 16:40 | Observation (INO) ==
[2022-01-21 17:59] LABS: Basophils % 0.6 %; Eosinophils # 0.1 K/mcL (0.0-0.6); Eosinophils % 1.5 %; Hematocrit 39.8 % (35.3-44.9); Immature Granulocytes % 0.2 % (0-4); Lymphocytes # 2.8 K/mcL (0.6-4.6); Lymphocytes % 42.1 %; Mean Corpuscular HGB Conc 35.2 g/dL (31.6-35.5); Mean Corpuscular Hemoglobin 31.5 pg (28.0-33.3); Mean Corpuscular Volume 89.6 fL (83.0-100.0); Mean Platelet Volume 10.1 fL (9.4-12.4); Monocytes # 0.5 K/mcL (0.0-1.3); Monocytes % 6.9 %; Neutrophils # 3.2 K/mcL (1.6-8.9); Platelet Count 252 K/mcL (140-400); Red Blood Count 4.44 M/mcL (3.82-4.97); Segmented Neutrophils % 48.7 %; White Blood Count 6.7 K/mcL (4.3-11.1)
[2022-01-21 18:21] LABS: BUN/Creatinine Ratio 16 (6-26); Blood Urea Nitrogen 14 mg/dL (6-20); Calcium 7.8 mg/dL (8.6-10.3); Carbon Dioxide 22 mEq/L (23-29); Chloride 108 mEq/L (98-107); Glucose 103 mg/dL (70-105); Osmolality,Calculated 289 (280-300); Potassium 3.8 mEq/L (3.5-5.1); Sodium 139 mEq/L (136-145); eGFR For African Americans > 60 (> 60); eGFR For Non-African Americans > 60 (> 60)
[2022-01-21 18:29] LABS: Troponin I 0.08 ng/mL (< 0.04)
[2022-01-21] MEDS ORDERED: Aspirin 325 MG TABLET PO ONE (18:55)
[2022-01-21 18:57] LABS: Prothrombin Time 11.4 Seconds (9.4-12.1)
[2022-01-21 19:00] LABS: Activated Partial Thrombo Time 29.6 Seconds (26.0-36.0)
[2022-01-21] MEDS ORDERED: Ketorolac 30 MG/ML VIAL IVP STA (19:04)
[2022-01-21] MEDS ORDERED: *HR* Heparin 5,000 UNIT/ML VIAL IVP ONE (19:07)
[2022-01-21] MEDS ORDERED: *HR* Heparin 5,000 UNIT/ML VIAL IVP PRN (19:07)
[2022-01-21] MEDS ORDERED: Heparin 25,000UNIT/250ML 1/2NS 25,000 UNIT/250 ML IV.SOLN IVC SCH (19:15)
[2022-01-21 19:54] LABS: Lipase 25 Units/L (11-82)
[2022-01-21 20:15] LABS: Hematocrit 39.6 % (35.3-44.9); Hemoglobin 13.7 g/dL (11.5-15.4); Mean Corpuscular HGB Conc 34.6 g/dL (31.6-35.5); Mean Corpuscular Hemoglobin 31.3 pg (28.0-33.3); Mean Corpuscular Volume 90.4 fL (83.0-100.0); Mean Platelet Volume 9.9 fL (9.4-12.4); Platelet Count 256 K/mcL (140-400); Red Blood Count 4.38 M/mcL (3.82-4.97); White Blood Count 5.8 K/mcL (4.3-11.1)
[2022-01-21 20:25] LABS: Heparin anti-factor XA UFH < 0.04 IU/mL (0.30-0.70)
[2022-01-21] MEDS ORDERED: levETIRAcetam 1,000 MG in 0.9 % Sodium Chloride 100 ML IVPB ONE (20:35)
[2022-01-21 20:43] LABS: Bilirubin,Urine Negative (Negative); Blood,Urine Negative (Negative); Clarity,Urine Clear (Clear); Color,Urine Yellow (Yellow); Glucose,Urine (UA) Normal (Normal); Hyaline Casts,Urine Few per lpf (None Seen); Ketones,Urine Negative (Negative); Leukocyte Esterase,Urine Small (Negative); Mucus,Urine Few per lpf (None-Few); Nitrite,Urine Negative (Negative); Protein,Urine Trace mg/dL (Neg-Trace); RBC,Urine 0-3 per hpf (0-3); Specific Gravity,Urine 1.021 (1.010-1.025); Squamous Epithelial Cell,Urine Moderate per hpf (None-Few); Urobilinogen,Urine Normal (Normal)
[2022-01-21 20:55] LABS: Amphetamine Screen,Urine Negative ng/mL (Cutoff=1000); Barbiturate Screen,Urine Negative ng/mL (Cutoff=200); Benzodiazepines Screen,Urine Positive ng/mL (Cutoff=200); Cannabinoid Screen,Urine Negative ng/mL (Cutoff = 50); Cocaine Screen,Urine Negative ng/mL (Cutoff= 300); Opiate Screen,Urine Negative ng/mL (Cutoff=300); Phencyclidine Screen,Urine Negative ng/mL (Cutoff=25)
[2022-01-21] MEDS ORDERED: Ondansetron 4 MG/2 ML VIAL IVP PRN (21:05)
[2022-01-21] MEDS ORDERED: Morphine Sulfate 2 MG/ML SYRINGE IVP PRN (21:06)
[2022-01-21] MEDS ORDERED: Iopamidol - 370 500 ML MLS IVP ONE (21:07)
[2022-01-21] MEDS ORDERED: Linaclotide [Linzess] 290 MCG Capsule PO PRN (21:14)
[2022-01-21] MEDS ORDERED: diazePAM 5 MG TABLET PO PRN (21:14)
[2022-01-21] MEDS ORDERED: Albuterol 2.5 MG/3 ML NEBULIZER IH PRN (21:14)
[2022-01-21] MEDS ORDERED: Naloxone 0.4 MG/ML INJ IVP PRN (21:31)
[2022-01-21] MEDS ORDERED: Perflutren Lipid Microsphere 1.3 ML in 0.9 % Sodium Chloride 8.7 ML IVP PRN (21:31)
[2022-01-21] MEDS ORDERED: Calcium Gluconate 1gm/50mL 1 GM/50 ML BAG IVPB ONE (21:39)
[2022-01-21] MEDS: lisinopriL 10 MG TABLET PO SCH (22:32)
[2022-01-21] MEDS: Nitroglycerin 0.4 MG TAB.SUBL SL PRN ×2 (23:45→23:50)
[2022-01-21] MEDS: Famotidine 20 MG TABLET PO SCH (23:50)
[2022-01-22 02:24] LABS: Hematocrit 38.1 % (35.3-44.9); Hemoglobin 12.9 g/dL (11.5-15.4); Mean Corpuscular HGB Conc 33.9 g/dL (31.6-35.5); Mean Corpuscular Volume 91.6 fL (83.0-100.0); Mean Platelet Volume 9.9 fL (9.4-12.4); Platelet Count 220 K/mcL (140-400); Red Blood Count 4.16 M/mcL (3.82-4.97); Red Cell Distribution Width 12.2 % (11.5-14.5); White Blood Count 4.8 K/mcL (4.3-11.1)
[2022-01-22 02:43] LABS: BUN/Creatinine Ratio 16 (6-26); Blood Urea Nitrogen 11 mg/dL (6-20); Calcium 8.9 mg/dL (8.6-10.3); Carbon Dioxide 23 mEq/L (23-29); Chloride 109 mEq/L (98-107); Chol/HDL Ratio 3.3 (0-4.9); Cholesterol 136 mg/dL (< 200); Glucose 89 mg/dL (70-105); HDL Cholesterol 41 mg/dL (40-59); LDL Cholesterol,Calculated 70 mg/dL (< 100); Osmolality,Calculated 287 (280-300); Potassium 3.8 mEq/L (3.5-5.1); Sodium 139 mEq/L (136-145); Triglycerides 127 mg/dL (< 150); eGFR For African Americans > 60 (> 60); eGFR For Non-African Americans > 60 (> 60)
[2022-01-22] MEDS: *HR* Heparin 5,000 UNIT/ML VIAL IVP PRN ×2 (02:48→09:45)
[2022-01-22 03:09] LABS: Estimated Average Glucose 105 mg/dl; Hemoglobin A1C 5.3 %
[2022-01-22 03:18] LABS: Hepatitis B Surface Antigen Nonreactive (Nonreactive)
[2022-01-22 03:22] LABS: Phenytoin (Dilantin) < 0.5 mcg/mL (10.0-20.0); Thyroid Stimulating Hormone 2.176 mcIU/mL (0.340-5.600)
[2022-01-22 03:47] LABS: Hepatitis B Core IgM Nonreactive (Nonreactive)
[2022-01-22 03:48] LABS: Hepatitis A Antibody IgM Nonreactive (Nonreactive)
[2022-01-22 05:20] LABS: Hepatitis C Virus Antibody Reactive (Nonreactive)
[2022-01-22] MEDS ORDERED: Tiotropium 10 INH DOSE IH ONE (07:29)
[2022-01-22 07:31] VITALS: PULSE 58
[2022-01-22] MEDS ORDERED: Tiotropium 10 INH DOSE IH SCH (09:00)
[2022-01-22] MEDS ORDERED: Metoprolol XL (24 HR) Succ 25 MG TAB.ER.24H PO SCH (09:00)
[2022-01-22] MEDS ORDERED: DilTIAZem CD (24hr) 120 MG CAP.ER.24H PO SCH (09:00)
[2022-01-22] MEDS ORDERED: Ranolazine 500 MG TAB.ER.12H PO SCH (09:00)
[2022-01-22] MEDS ORDERED: Loratadine 10 MG TABLET PO SCH (09:00)
[2022-01-22] MEDS: lisinopriL 10 MG TABLET PO SCH (09:30)
[2022-01-22] MEDS: Famotidine 20 MG TABLET PO SCH (09:31)
[2022-01-22] MEDS ORDERED: Budesonide/Formoterol 80/4.5 1 PUFF INH IH SCH (10:00)
[2022-01-22 10:30] VITALS: BP 128/88; TEMP 97.6; O2SAT 97
== END 2022-01-22 12:38 | disposition home or self-care (01) ==
LOC: EMEROOARM 16:40 → 3BNU 16:40 → SUATTDRO 19:36 → 3BNU 21:55
PROVIDERS: ADMIT Internal Medicine; ATTEND Nurse Practitioner